=== PATIENT | female | born 1935 | race African-American/Black ===

== ENCOUNTER 2017-07-28 10:54 | Emergency (ER) | payer MEDICARE, BC ==
[2017-07-28 11:06] VITALS: BP 146/69
--- NOTE | 2017-07-28 11:36 | ER Document Report ---
ED Fall - General Chief Complaint: Facial Injury Stated Complaint: FALL/MOUTH PAIN Time Seen by Provider: 07/28/17 11:27 Mode of Arrival: Ambulatory Information source: Patient, [facility] Records Notes: This 81-year-old female patient lost her balance while walking outside today and fell forward onto the grass. She struck her lower lip toward the left side and left face and ear region. She denies actually striking her head, and there was no loss of consciousness. There is no neck pain. At this time there is only swelling to her lower lip. She takes a baby aspirin daily and no other antiplatelet drugs or blood thinners. TRAVEL OUTSIDE OF THE [place] IN LAST 30 DAYS: No - Related data Allergies/Adverse Reactions: No Known Allergies Allergy (Verified 07/28/17 10:57) Past Medical History - General Information source: Patient - Social History Smoking Status: Never Smoker Cigarette use (# per day): No Chew tobacco use (# tins/day): No Smoking Education Provided: No Frequency of alcohol use: None Drug Abuse: None Occupation: Retired Lives with: Spouse/Significant other Family History: Reviewed & Not Pertinent Patient has suicidal ideation: No Patient has homicidal ideation: No - Past Medical History Cardiac Medical History: Reports: Hx Hypercholesterolemia, Hx Hypertension Pulmonary Medical History: Reports: None EENT Medical History: Reports: None Neurological Medical History: Reports: None Endocrine Medical History: Reports: None Renal/ Medical History: Reports: Hx Kidney Stones GI Medical History: Reports: Hx Gastroesophageal Reflux Disease Musculoskeltal Medical History: Reports Hx Arthritis - osteo arthritis Psychiatric Medical History: Reports: None Past Surgical History: Reports: Hx Cholecystectomy, Hx Hysterectomy - Immunizations Hx Diphtheria, Pertussis, Tetanus Vaccination: Yes Hx Pneumococcal Vaccination: 07/07/14 Review of Systems - Review of Systems Constitutional: No symptoms reported EENT: No symptoms reported Cardiovascular: No symptoms reported Respiratory: No symptoms reported Gastrointestinal: No symptoms reported Female Genitourinary: Post menopausal Musculoskeletal: Joint pain Skin: No symptoms reported Hematologic/Lymphatic: No symptoms reported Neurological/Psychological: No symptoms reported Physical Exam - Vital signs Vitals: Temp Pulse Resp BP Pulse Ox 98.1 F 76 20 146/69 H 98 07/28/17 11:05 07/28/17 11:05 07/28/17 11:05 07/28/17 11:05 01/16/18 11:05 Interpretation: Normal - General General appearance: Appears well, Alert In distress: None - HEENT Head: Normocephalic, Atraumatic Eyes: Normal Pupils: PERRL Ears: Normal - Left external ear does not show any scrapes, lacerations, bruises , abrasions. There is no tenderness. Mouth/Lips: Other - The lower lip is grossly swollen, with some indentions on the inside corresponding to the patient's partial plate. Partial plate in the mouth are not affected. There are no actual complete lacerations or bleeding areas seen. Pharynx: Normal Neck: Normal, Supple - Posterior cervical muscles and spinous processes are not tender to palpate and patient has good range of motion. - Respiratory Respiratory status: No respiratory distress Breath sounds: Normal - Cardiovascular Rhythm: Regular Heart sounds: Normal auscultation Murmur: No - Abdominal Inspection: Normal Bowel sounds: Normal Tenderness: Nontender - Back Back: Normal - Extremities General upper extremity: Normal inspection - Patient does indicate an area on her right third and fourth MCP joints but is a little tender. There are no abrasions, no swelling or ecchymosis noted. There is good full range of motion at these joints. General lower extremity: Normal inspection - Neurological Neuro grossly intact: Yes - Psychological Associated symptoms: Normal affect, Normal mood - Skin Skin Temperature: Warm Skin Moisture: Dry Skin Color: Normal Course - Re-evaluation Re-evalutation: 07/28/17 13:35 The patient does feel that the swelling in her lip has gone down over time with the ice packs that she has been using. - Vital Signs Vital signs: Temp Pulse Resp BP Pulse Ox 98.1 F 76 20 146/69 H 98 07/28/17 11:05 07/28/17 11:05 07/28/17 11:05 07/28/17 11:05 07/28/17 11:05 Discharge - Discharge Clinical Impression: Fall Qualifiers: Encounter type: initial encounter Qualified Code(s): W19.XXXA - Unspecified fall, initial encounter Contusion of lip Qualifiers: Encounter type: initial encounter Qualified Code(s): S00.531A - Contusion of lip, initial encounter Condition: Stable Disposition: HOME, SELF-CARE Additional Instructions: Lip Contusion: Your injury has resulted in a contusion of your lower lip-- a crushing of the deep tissues. No injury to important structures was detected during the physician's exam. Contusions vary in the amount of pain they cause, and in the length of time required for healing. Typically, the area will become bruised, and will remain painful to touch for a week or two. After the initial period of rest and cold-packs, your symptoms (together with the doctor's recommendations) will determine how rapidly you can get back to full activity. Usually this means "do what feels okay, but don't do things that hurt." If re-examination was recommended, it's important to follow up as instructed. Call the doctor or return any time if pain increases, if swelling becomes severe, if you develop numbness or weakness in an injured extremity, or if any other alarming symptoms occur. //////////////////////////////////////////////////////////////////////////////// //////////////////////////////////////////////////////////////////////////////// ///////////////// Use ice packs to the swollen lip for the next 12-24 hours. Rest. You may notice other areas become sore later. Follow-up with your primary care provider if not improving. RETURN TO THE EMERGENCY ROOM IF ANY NEW OR WORSENING SYMPTOMS.
== END 2017-07-28 11:40 | disposition home or self-care (01) ==
LOC: ER 10:54
DX: S00.531A Contusion of lip, initial encounter (principal); R22.0 Localized swelling, mass and lump, head; W19.XXXA Unspecified fall, initial encounter
CPT/HCPCS: 99283

== ENCOUNTER 2017-10-25 16:44 | Emergency (ER) | payer MEDICARE, BC ==
--- NOTE | 2017-10-25 17:12 | ER Document Report ---
ED Medical Screen (RME) - General Chief Complaint: Chest Pain Stated Complaint: CHEST PAIN Time Seen by Provider: 10/25/17 17:01 Notes: This 81-year-old female patient reports onset about 1230 today while at advent of substernal chest pain which she describes as sharp in nature. She states it is different from indigestion pain she has had in the past. She does not have a history of coronary artery disease, does have hypertension and hyperlipidemia. I have greeted and performed a rapid initial assessment of this patient. A comprehensive ED assessment and evaluation of the patient, analysis of test results and completion of the medical decision making process will be conducted by additional ED providers. TRAVEL OUTSIDE OF THE [place] IN LAST 30 DAYS: No - Related Data Allergies/Adverse Reactions: No Known Allergies Allergy (Verified 10/25/17 17:01) Past Medical History - Social History Chew tobacco use (# tins/day): No Frequency of alcohol use: None Drug Abuse: None - Past Medical History Cardiac Medical History: Reports: Hx Hypercholesterolemia, Hx Hypertension Denies: Hx Coronary Artery Disease, Hx Heart Attack Pulmonary Medical History: Denies: Hx Asthma, Hx Bronchitis, Hx COPD, Hx Pneumonia Neurological Medical History: Denies: Hx Cerebrovascular Accident, Hx Seizures Renal/ Medical History: Reports: Hx Kidney Stones. Denies: Hx Peritoneal Dialysis GI Medical History: Reports: Hx Gastroesophageal Reflux Disease. 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 Denies: Hx Mastectomy, Hx Open Heart Surgery, Hx Pacemaker - Immunizations Hx Diphtheria, Pertussis, Tetanus Vaccination: Yes Physical Exam - Vital signs Vitals: Temp Pulse Resp BP Pulse Ox 98.0 F 64 16 163/73 H 98 10/25/17 16:56 10/25/17 16:56 10/25/17 16:56 10/25/17 16:56 10/25/17 16:56 Course - Vital Signs Vital signs: Temp Pulse Resp BP Pulse Ox 98.0 F 64 16 163/73 H 98 10/25/17 16:56 10/25/17 16:56 10/25/17 16:56 10/25/17 16:56 10/25/17 16:56
--- NOTE | 2017-10-25 17:54 | RADIOLOGY REPORT (SQ) ---
EXAM DESCRIPTION: CHEST 2 VIEWS COMPLETED DATE/TIME: 10/25/2017 5:44 pm REASON FOR STUDY: chest pain COMPARISON: 12/15/1999 EXAM PARAMETERS: NUMBER OF VIEWS: two views TECHNIQUE: Digital Frontal and Lateral radiographic views of the chest acquired. RADIATION DOSE: NA LIMITATIONS: none FINDINGS: LUNGS AND PLEURA: No opacities, masses or pneumothorax. No pleural effusion. MEDIASTINUM AND HILAR STRUCTURES: No masses or contour abnormalities. HEART AND VASCULAR STRUCTURES: Heart normal size. No evidence for failure. BONES: No acute findings. HARDWARE: None in the chest. OTHER: No other significant finding. IMPRESSION: NO ACUTE RADIOGRAPHIC FINDING IN THE CHEST. TECHNICAL DOCUMENTATION: JOB ID: [id number] [employer]- All Rights Reserved Reading location - IP/workstation name: [email or web address]
[2017-10-25 18:05] LABS: ABSOLUTE BASOPHILS # (AUTO) 0.1 10^3/uL (0.0-0.2); ABSOLUTE EOSINOPHILS # (AUTO) 0.2 10^3/uL (0.0-0.6); ABSOLUTE LYMPHOCYTES (AUTO) 2.4 10^3/uL (0.5-4.7); ABSOLUTE MONOCYTES (AUTO) 0.5 10^3/uL (0.1-1.4); ABSOLUTE NEUT (AUTO) 1.8 10^3/uL (1.7-8.2); BASOPHILS % (AUTO) 1.2 % (0-2); EOSINOPHILS % (AUTO) 3.2 % (0-6); HEMATOCRIT 37.2 % (36.0-47.0); HEMOGLOBIN 12.5 g/dL (12.0-15.5); MEAN CORPUSCULAR HEMOGLOBIN 28.9 pg (27.0-33.4); MEAN CORPUSCULAR HGB CONC 33.6 g/dL (32.0-36.0); MEAN CORPUSCULAR VOLUME 86 fl (80-97); MONOCYTES % (AUTO) 9.8 % (3-13); PLATELET COUNT 208 10^3/uL (150-450); RED BLOOD COUNT 4.32 10^6/uL (3.72-5.28); RED CELL DISTRIBUTION WIDTH 14.6 % (11.5-14.0); SEGMENTED NEUTROPHILS % (AUTO) 36.8 % (42-78); TOTAL CELLS COUNTED % (AUTO) 100 %; WHITE BLOOD COUNT 4.9 10^3/uL (4.0-10.5)
[2017-10-25 18:12] LABS: ALANINE AMINOTRANSFERASE 21 U/L (9-52); ALBUMIN 4.5 g/dL (3.5-5.0); ALKALINE PHOSPHATASE 44 U/L (38-126); ANION GAP 12 (5-19); ASPARTATE AMINO TRANSFERASE 29 U/L (14-36); BILIRUBIN,DIRECT 0.2 mg/dL (0.0-0.4); BILIRUBIN,TOTAL 0.4 mg/dL (0.2-1.3); BLOOD UREA NITROGEN 22 mg/dL (7-20); CALCIUM 9.9 mg/dL (8.4-10.2); CARBON DIOXIDE 29 mmol/L (22-30); CHLORIDE 103 mmol/L (98-107); CREATINE KINASE 149 U/L (30-135); GLUCOSE 89 mg/dL (75-110); POTASSIUM 3.9 mmol/L (3.6-5.0); SODIUM 143.6 mmol/L (137-145); TOTAL PROTEIN 7.8 g/dL (6.3-8.2)
--- NOTE | 2017-10-25 20:08 | EKG REPORT ---
SEVERITY:- ABNORMAL ECG - SINUS RHYTHM PROBABLE LEFT ATRIAL ABNORMALITY NONSPECIFIC T ABNORMALITIES, ANT-LAT LEADS : Confirmed by: Malcolm Rodas MD 25-Oct-2017 20:08:21
[2017-10-25 20:20] LABS: APPEARANCE,URINE CLEAR; BILIRUBIN,URINE NEGATIVE (NEGATIVE); COLOR,URINE STRAW; GLUCOSE, URINE NEGATIVE (NEGATIVE); KETONES,URINE NEGATIVE (NEGATIVE); LEUKOCYTE ESTERASE,URINE NEGATIVE (NEGATIVE); NITRITE,URINE NEGATIVE (NEGATIVE); PROTEIN,URINE NEGATIVE (NEGATIVE); URINE SPECIFIC GRAVITY 1.004; UROBILINOGEN,URINE NEGATIVE mg/dL (<2.0)
[2017-10-25] MEDS ORDERED: LIDOCAINE 2% VISCOUS SOLN 20 ML UDCUP PO ONE (20:32)
[2017-10-25] MEDS ORDERED: METOCLOPRAMIDE HCL ORAL SOLN 10 MG/10 ML UDCUP PO ONE (20:32)
[2017-10-25] MEDS ORDERED: FAMOTIDINE 20 MG TABLET PO ONE (20:32)
[2017-10-25] MEDS ORDERED: MAG HYDROX/AL HYDROX/SIMETH SUSP 30 ML UDCUP PO ONE (20:32)
--- NOTE | 2017-10-25 20:32 | ER Document Report ---
ED General - General Chief Complaint: Chest Pain Stated Complaint: CHEST PAIN Time Seen by Provider: 10/25/17 17:01 Notes: Patient is an 81 year old female with a past medical history of hypertension hyperlipidemia, no known coronary artery disease, normal stress test less than 1 year ago who presents with chest pain. Patient states that at approximately 1230 today she developed an acute onset of a stabbing pain to the center of her low sternum. She states that the pain has been ongoing since that time. She denies any associated shortness of breath, nausea, vomiting or diaphoresis. Nothing improves or worsens her pain. She states that she has had similar symptoms many times in the past secondary to reflux but that this felt more intense and somewhat dissimilar to her prior episodes prompting her to come to the emergency department. She has not seen her primary care doctor regarding today's concerns. She states that overall her pain has improved since arriving here in the emergency department and is now almost completely resolved. TRAVEL OUTSIDE OF THE [place] IN LAST 30 DAYS: No - Related Data Allergies/Adverse Reactions: No Known Allergies Allergy (Verified 10/25/17 17:01) Past Medical History - General Information source: Patient - Social History Smoking Status: Never Smoker Chew tobacco use (# tins/day): No Frequency of alcohol use: None Drug Abuse: None Lives with: Family Family History: Reviewed & Not Pertinent Patient has suicidal ideation: No Patient has homicidal ideation: No - Past Medical History Cardiac Medical History: Reports: Hx Hypercholesterolemia, Hx Hypertension Denies: Hx Coronary Artery Disease, Hx Heart Attack Pulmonary Medical History: Denies: Hx Asthma, Hx Bronchitis, Hx COPD, Hx Pneumonia Neurological Medical History: Denies: Hx Cerebrovascular Accident, Hx Seizures Renal/ Medical History: Reports: Hx Kidney Stones. Denies: Hx Peritoneal Dialysis GI Medical History: Reports: Hx Gastroesophageal Reflux Disease. 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 Denies: Hx Mastectomy, Hx Open Heart Surgery, Hx Pacemaker - Immunizations Hx Diphtheria, Pertussis, Tetanus Vaccination: Yes Hx Pneumococcal Vaccination: 07/07/14 Review of Systems - Review of Systems Notes: Constitutional: Negative for fever. HENT: Negative for sore throat. Eyes: Negative for visual changes. Cardiovascular: Positive for chest pain. Respiratory: Negative for shortness of breath. Gastrointestinal: Negative for abdominal pain, vomiting or diarrhea. Genitourinary: Negative for dysuria. Musculoskeletal: Negative for back pain. Skin: Negative for rash. Neurological: Negative for headaches, weakness or numbness. 10 point ROS negative except as marked above and in HPI. Physical Exam - Vital signs Vitals: Temp Pulse Resp BP Pulse Ox 98.0 F 64 16 163/73 H 98 10/25/17 16:56 10/25/17 16:56 10/25/17 16:56 10/25/17 16:56 10/25/17 16:56 Interpretation: Hypertensive Notes: PHYSICAL EXAMINATION: GENERAL: Well-appearing, well-nourished and in no acute distress. HEAD: Atraumatic, normocephalic. EYES: Pupils equal round and reactive to light, extraocular movements intact, sclera anicteric, conjunctiva are normal. ENT: nares patent, oropharynx clear without exudates. Moist mucous membranes. NECK: Normal range of motion, supple without lymphadenopathy LUNGS: Breath sounds clear to auscultation bilaterally and equal. No wheezes rales or rhonchi. HEART: Regular rate and rhythm without murmurs ABDOMEN: Soft, nontender, normoactive bowel sounds. No guarding, no rebound. No masses appreciated. EXTREMITIES: Normal range of motion, no pitting or edema. No cyanosis. NEUROLOGICAL: No focal neurological deficits. Moves all extremities spontaneously and on command. PSYCH: Normal mood, normal affect. SKIN: Warm, Dry, normal turgor, no rashes or lesions noted. Course - Re-evaluation Re-evalutation: 10/25/17 20:26 Presentation of chest pain in an otherwise well appearing patient. Low clinical suspicion for ACS given clinical history, exam, EKG without ST elevations or depressions, and negative initial troponin. HEART score less than or equal to 3. PE also seems unlikely given clinical history, absence of tachycardia or dyspnea. Patient is PERC criteria negative. CXR without evidence of pneumothorax or pneumonia. No widened mediastinum. Aortic dissection also seems unlikely given history, symmetric pulses, CXR, and vitals. Will repeat a delta troponin this remains normal plan for discharge home. HEART Score: History:0 EC Age:2 Risk Factors:1 Troponin:0 Total: 3 Chest pain in a patient without evidence of cardiac or other serious etiology on workup today. I discussed with patient that, based on their age, risk factors and emergency department testing today, the likelihood that their symptoms are related to a heart attack is very low (estimated risk of heart attack or over the next 30 days of less than 1%). The patient demonstrates decision making capacity and has verbalized an understanding of these risks to me. Based on this, the patient has chosen to follow-up as an outpatient. Usual chest pain return precautions reviewed. The patient states understanding and agreement with this plan. - Vital Signs Vital signs: Temp Pulse Resp BP Pulse Ox 98.0 F 64 17 137/67 H 100 10/25/17 16:56 10/25/17 16:56 10/25/17 22:01 10/25/17 22:01 10/25/17 22:01 - Laboratory Result Diagrams: 10/25/17 17:31 10/25/17 17:31 Laboratory results interpreted by me: 10/25/17 10/25/17 10/25/17 17:31 17:31 19:49 RDW 14.6 H Seg Neutrophils % 36.8 L Lymphocytes % 49.0 H BUN 22 H Est GFR (Non-Af Amer) 52 L Creatine Kinase 149 H Urine Blood SMALL H - Diagnostic Test Radiology reviewed: Image reviewed, Reports reviewed Radiology results interpreted by me: 10/25/17 20:27 Chest x-ray: No acute infiltrate or pneumothorax - EKG Interpretation by Me Additional EKG results interpreted by me: 10/25/17 20:27 Sinus bradycardia. Rate 58. No ST elevations or depressions. QTC is 429. Discharge - Discharge Clinical Impression: Essential hypertension Chest pain Qualifiers: Chest pain type: unspecified Qualified Code(s): R07.9 - Chest pain, unspecified Condition: Good Disposition: HOME, SELF-CARE Additional Instructions: You were seen today for chest pain. The exact cause of your pain is unclear. However, based on your cardiac enzyme testing, chest x-ray, and EKG it does not appear that it is from an immediately life-threatening cause at this time. Although your testing here is normal is critical that you follow-up with your primary care physician for continued evaluation of this chest pain and possible stress testing. I recommended you see your physician within the next 24-48 hours to be evaluated for consideration of a stress test. Please return to emergency department immediately if you have worsening of your chest pain, shortness of breath, vomiting, become unable to exert yourself due to pain or difficulty breathing, you pass out, or have any pain that radiates into your arms, jaw, or back. Please also return if you have any additional symptoms that are concerning to you. Referrals: IGNACIA DELCID MD [Primary Care Provider] - Follow up in 3-5 days
[2017-10-25 22:05] VITALS: BP 137/67
== END 2017-10-25 22:08 | disposition home or self-care (01) ==
LOC: ER 16:44
DX: R07.9 Chest pain, unspecified (principal); I10 Essential (primary) hypertension; E78.5 Hyperlipidemia, unspecified; I25.10 Atherosclerotic heart disease of native coronary artery without angina pectoris
CPT/HCPCS: 93005; 99285; 36415; 82550; 85025; 80053; 81001; 84484; 71046; 93010; A9270 ×2; J3490

== ENCOUNTER 2018-04-13 15:13 | Emergency (ER) | payer MEDICARE, BC ==
--- NOTE | 2018-04-13 16:13 | ER Document Report ---
ED Medical Screen (RME) - General Chief Complaint: Neck Pain >24hrs old Stated Complaint: NECK PAIN Time Seen by Provider: 04/13/18 16:11 Mode of Arrival: Ambulatory Information source: Patient, Relative, [facility] Records Notes: 82-year-old female presents with complaint of neck pain, pain with opening her mouth. Patient states that since falling last winter she has experienced neck pain that has worsened over the last month. Patient was seen by her primary care physician yesterday and started on Keflex for "inflammation". I have greeted and performed a rapid initial assessment of this patient. A comprehensive ED assessment and evaluation of the patient, analysis of test results and completion of medical decision making process we will be contacted by additional ED providers. PHYSICAL EXAMINATION: Vital signs reviewed GENERAL: Well-appearing, well-nourished and in no acute distress. LUNGS: No respiratory distress Musculoskeletal: Normal range of motion NEUROLOGICAL: Normal speech, normal gait. PSYCH: Normal mood, normal affect. SKIN: Warm, Dry, normal turgor, no rashes or lesions noted. TRAVEL OUTSIDE OF THE [place] IN LAST 30 DAYS: No - HPI Onset: Other Onset/Duration: Persistent, Worse Quality of pain: Throbbing Severity: Moderate Associated Symptoms: Sore throat. denies: Fever Exacerbated by: Movement Relieved by: Denies Similar symptoms previously: Yes Recently seen / treated by doctor: Yes - Related Data Smoking: Non-smoker Frequency of alcohol use: None Drug Abuse: None Allergies/Adverse Reactions: No Known Allergies Allergy (Verified 04/13/18 16:08) Past Medical History - Social History Chew tobacco use (# tins/day): No Frequency of alcohol use: None Drug Abuse: None - Past Medical History Cardiac Medical History: Reports: Hx Hypercholesterolemia, Hx Hypertension Denies: Hx Coronary Artery Disease, Hx Heart Attack Pulmonary Medical History: Denies: Hx Asthma, Hx Bronchitis, Hx COPD, Hx Pneumonia Neurological Medical History: Denies: Hx Cerebrovascular Accident, Hx Seizures Renal/ Medical History: Reports: Hx Kidney Stones. Denies: Hx Peritoneal Dialysis GI Medical History: Reports: Hx Gastroesophageal Reflux Disease. 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 Denies: Hx Mastectomy, Hx Open Heart Surgery, Hx Pacemaker - Immunizations Hx Diphtheria, Pertussis, Tetanus Vaccination: Yes Physical Exam - Vital signs Vitals: Temp Pulse Resp BP Pulse Ox 99.2 F 83 16 159/64 H 98 04/13/18 15:22 04/13/18 15:22 04/13/18 15:22 04/13/18 15:22 04/13/18 15:22 Course - Vital Signs Vital signs: Temp Pulse Resp BP Pulse Ox 99.2 F 83 16 159/64 H 98 04/13/18 15:22 04/13/18 15:22 04/13/18 15:22 04/13/18 15:22 04/13/18 15:22 Doctor's Discharge - Discharge Referrals: IGNACIA DELCID MD [Primary Care Provider] - Follow up as needed
[2018-04-13 16:48] LABS: ABSOLUTE BASOPHILS # (AUTO) 0.1 10^3/uL (0.0-0.2); ABSOLUTE LYMPHOCYTES (AUTO) 1.7 10^3/uL (0.5-4.7); ABSOLUTE MONOCYTES (AUTO) 0.7 10^3/uL (0.1-1.4); BASOPHILS % (AUTO) 1.3 % (0-2); EOSINOPHILS % (AUTO) 0.2 % (0-6); HEMATOCRIT 38.8 % (36.0-47.0); HEMOGLOBIN 13.2 g/dL (12.0-15.5); LYMPHOCYTES % (AUTO) 25.7 % (13-45); MEAN CORPUSCULAR HEMOGLOBIN 29.2 pg (27.0-33.4); MEAN CORPUSCULAR HGB CONC 34.1 g/dL (32.0-36.0); MEAN CORPUSCULAR VOLUME 86 fl (80-97); MONOCYTES % (AUTO) 11.1 % (3-13); PLATELET COUNT 225 10^3/uL (150-450); RED BLOOD COUNT 4.53 10^6/uL (3.72-5.28); RED CELL DISTRIBUTION WIDTH 13.2 % (11.5-14.0); SEGMENTED NEUTROPHILS % (AUTO) 61.7 % (42-78); TOTAL CELLS COUNTED % (AUTO) 100 %; WHITE BLOOD COUNT 6.5 10^3/uL (4.0-10.5)
--- NOTE | 2018-04-13 17:04 | RADIOLOGY REPORT (SQ) ---
EXAM DESCRIPTION: CT CERVICAL SPINE WITHOUT COMPLETED DATE/TIME: 04/13/2018 4:47 pm REASON FOR STUDY: neck pain /swelling COMPARISON: None. TECHNIQUE: Axial images acquired through the cervical spine without intravenous contrast. Images re viewed with lung, soft tissue and bone windows. Reconstructed coronal and sagittal MPR images review ed. Images stored on PACS. All CT scanners at this facility use dose modulation, iterative reconstruction, and/or weight based d osing when appropriate to reduce radiation dose to as low as reasonably achievable (ALARA). [facility]: Dose Right [facility]: CareDose [facility]: Dose Right [facility]: Teradose 4D [facility]: Smart DXY RADIATION DOSE: CT Rad equipment meets quality standard of care and radiation dose reduction techniq ues were employed. CTDIvol: 10.2 mGy. DLP: 227 mGy-cm. mGy. LIMITATIONS: None. FINDINGS: ALIGNMENT: Anatomic. MINERALIZATION: Normal. VERTEBRAL BODIES: No fractures or dislocation. DISCS: Craniocervical junction, C1-2, are unremarkable. High-grade left foraminal narrowing at C2-3 from facet and uncovertebral hypertrophy. No significant central or right foraminal narrowing. At C3-4, broad diffuse posterior disc bulging causes mild central canal narrowing. Mild right, high- grade left foraminal narrowing from facet and uncovertebral hypertrophy. At C4-5, mild central canal stenosis results from broad diffuse posterior disc bulging. High-grade b ilateral foraminal narrowing from facet and uncovertebral hypertrophy. At C5-6, no central stenosis is present. High-grade bilateral foraminal narrowing from facet and unc overtebral hypertrophy. At C6-7, mild central canal stenosis results from broad diffuse posterior disc bulge and bony spurrin g. There is high-grade bilateral foraminal narrowing from facet and uncovertebral hypertrophy. No central stenosis at C7-T1. High-grade bilateral foraminal narrowing is present from facet and unc overtebral hypertrophy. FACETS, LATERAL MASSES, POSTERIOR ELEMENTS: No acute fracture HARDWARE: None in the spine. VISUALIZED RIBS: No fractures. LUNG APICES AND SOFT TISSUES: No significant or acute findings. OTHER: No other significant finding. IMPRESSION: CHRONIC DEGENERATIVE CHANGES. NO ACUTE FINDINGS. TECHNICAL DOCUMENTATION: JOB ID: [id number] Quality ID # [id number]: Final reports with documentation of one or more dose reduction techniques (e.g., Au tomated exposure control, adjustment of the mA and/or kV according to patient size, use of iterative reconstruction technique) 2010 [employer]- All Rights Reserved Reading location - IP/workstation name: [email or web address]
[2018-04-13 17:10] LABS: ANION GAP 11 (5-19); BLOOD UREA NITROGEN 21 mg/dL (7-20); CALCIUM 9.8 mg/dL (8.4-10.2); CARBON DIOXIDE 31 mmol/L (22-30); CHLORIDE 99 mmol/L (98-107); GLUCOSE 118 mg/dL (75-110); POTASSIUM 3.7 mmol/L (3.6-5.0); SODIUM 140.7 mmol/L (137-145)
[2018-04-13] MEDS ORDERED: TRAMADOL HCL 50 MG TABLET PO ONE (18:55)
[2018-04-13] MEDS ORDERED: LIDOCAINE 5% (700 MG) TRANSDERMAL ADH..PATCH TP ONE (19:01)
--- NOTE | 2018-04-13 19:01 | ER Document Report ---
ED General - General Chief Complaint: Neck Pain >24hrs old Stated Complaint: NECK PAIN Time Seen by Provider: 04/13/18 16:11 Mode of Arrival: Ambulatory TRAVEL OUTSIDE OF THE [place] IN LAST 30 DAYS: No - HPI Patient complains to provider of: Neck pain Notes: Patient coming in for evaluation of neck pain ongoing for approximately 1 week saw her PCP yesterday started on Keflex for lymphadenopathy found in the neck patient states continues to have pain therefore came to the ER for further evaluation denies any fevers chills nausea vomiting denies any difficulty controlling her secretions denies any shortness of breath. Patient resting healthy upon my evaluation. - Related Data Allergies/Adverse Reactions: No Known Allergies Allergy (Verified 04/13/18 16:08) Past Medical History - General Information source: Patient, Relative, [facility] Records - Social History Smoking Status: Never Smoker Chew tobacco use (# tins/day): No Frequency of alcohol use: None Drug Abuse: None Family History: Reviewed & Not Pertinent Patient has suicidal ideation: No Patient has homicidal ideation: No - Past Medical History Cardiac Medical History: Reports: Hx Hypercholesterolemia, Hx Hypertension Denies: Hx Coronary Artery Disease, Hx Heart Attack Pulmonary Medical History: Denies: Hx Asthma, Hx Bronchitis, Hx COPD, Hx Pneumonia Neurological Medical History: Denies: Hx Cerebrovascular Accident, Hx Seizures Renal/ Medical History: Reports: Hx Kidney Stones. Denies: Hx Peritoneal Dialysis GI Medical History: Reports: Hx Gastroesophageal Reflux Disease. 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 Denies: Hx Mastectomy, Hx Open Heart Surgery, Hx Pacemaker - Immunizations Hx Diphtheria, Pertussis, Tetanus Vaccination: Yes Hx Pneumococcal Vaccination: 07/07/14 Review of Systems - Review of Systems Constitutional: No symptoms reported EENT: Other - Neck pain Cardiovascular: No symptoms reported Respiratory: No symptoms reported Gastrointestinal: No symptoms reported Genitourinary: No symptoms reported Female Genitourinary: No symptoms reported Musculoskeletal: No symptoms reported Skin: No symptoms reported Hematologic/Lymphatic: No symptoms reported Neurological/Psychological: No symptoms reported -: Yes All other systems reviewed and negative Physical Exam - Vital signs Vitals: Temp Pulse Resp BP Pulse Ox 99.2 F 83 16 159/64 H 98 04/13/18 15:22 04/13/18 15:22 04/13/18 15:22 04/13/18 15:22 04/13/18 15:22 Interpretation: Normal - General General appearance: Appears well, Alert - HEENT Head: Normocephalic, Atraumatic Eyes: Normal Conjunctiva: Normal Cornea: Normal Pupils: PERRL Ears: Normal External canal: Normal Tympanic membrane: Normal Sinus: Normal Nasal: Normal Mouth/Lips: Normal Pharynx: Normal Notes: Left-sided cervical lymphadenopathy with 3 palpable lymph nodes felt painful no fluctuance no tenderness to palpation of the submandibular gland - Respiratory Respiratory status: No respiratory distress Chest status: Nontender Breath sounds: Normal Chest palpation: Normal - Cardiovascular Rhythm: Regular Heart sounds: Normal auscultation Murmur: No - Abdominal Inspection: Normal Distension: No distension Bowel sounds: Normal Tenderness: Nontender Organomegaly: No organomegaly - Back Back: Normal, Nontender - Extremities General upper extremity: Normal inspection, Nontender, Normal color, Normal ROM , Normal temperature General lower extremity: Normal inspection, Nontender, Normal color, Normal ROM , Normal temperature, Normal weight bearing. No: Dana's sign - Neurological Neuro grossly intact: Yes Cognition: Normal Orientation: AAOx4 Platter Coma Scale Eye Opening: Spontaneous Platter Coma Scale Verbal: Oriented Darrius Coma Scale Motor: Obeys Commands Darrius Coma Scale Total: 15 Speech: Normal Motor strength normal: LUE, RUE, LLE, RLE Sensory: Normal - Psychological Associated symptoms: Normal affect, Normal mood - Skin Skin Temperature: Warm Skin Moisture: Dry Skin Color: Normal Course - Re-evaluation Re-evalutation: 04/13/18 22:58 No clear etiology for the patient's cervical lymphadenopathy at this time. Patient was encouraged follow-up with PCP continue her antibiotics Ultram was given for pain control patient is understanding patient was discharged home. - Vital Signs Vital signs: Temp Pulse Resp BP Pulse Ox 97.9 F 75 16 155/69 H 98 04/13/18 19:10 04/13/18 19:10 04/13/18 15:22 04/13/18 19:10 04/13/18 19:10 - Laboratory Result Diagrams: 04/13/18 16:37 04/13/18 16:37 Laboratory results interpreted by me: 04/13/18 16:37 Carbon Dioxide 31 H BUN 21 H Est GFR ( Amer) 51 L Est GFR (Non-Af Amer) 42 L Glucose 118 H Discharge - Discharge Clinical Impression: Neck pain, Cervical lymphadenopathy Condition: Good Disposition: HOME, SELF-CARE Instructions: Lymphadenopathy ([facility]) Additional Instructions: Your evaluation today shows signs of swollen lymph nodes in her neck that your primary care physician is her I placed you on antibiotics for. Otherwise your evaluation here in ER does not show any signs of acute infection that would require admission to the hospital CT scan of your neck is otherwise negative. I recommend using Tylenol for pain control along with the tramadol as prescribed. Take tramadol for severe pain. Return to ER symptoms worsen follow -up with your primary care physician. Prescriptions: Tramadol HCl [Ultram 50 mg Tablet] 50 mg PO ASDIR PRN #14 tablet PRN Reason: Referrals: IGNACIA DELCID MD [Primary Care Provider] - Follow up as needed
[2018-04-13 19:12] VITALS: BP 155/69
== END 2018-04-13 19:13 | disposition home or self-care (01) ==
LOC: ER 15:13
DX: M54.2 Cervicalgia (principal); R59.0 Localized enlarged lymph nodes; E78.00 Pure hypercholesterolemia, unspecified; I10 Essential (primary) hypertension; Z87.442 Personal history of urinary calculi; Z90.49 Acquired absence of other specified parts of digestive tract; Z90.710 Acquired absence of both cervix and uterus
CPT/HCPCS: 99284; 36415; 85025; 80048; 72125; A9270

== ENCOUNTER 2018-07-23 14:01 | Emergency (ER) | payer MEDICARE, BC ==
--- NOTE | 2018-07-23 15:41 | ER Document Report ---
ED Medical Screen (RME) - General Chief Complaint: Dizziness Stated Complaint: DIZZY Time Seen by Provider: 07/23/18 15:35 TRAVEL OUTSIDE OF THE [place] IN LAST 30 DAYS: No - HPI Notes: 07/23/18 15:41 Patient is a 82-year-old female that presents to the emergency department for chief complaint of dizziness. Patient states she felt normal yesterday when she woke up however shortly after that she started to feel dizzy. She states a constant sensation of motion and dizziness since then. It is worse when she looks down and then looks up again. She denies history of vertigo. She denies headache, vision changes, numbness and weakness. She denies any change in her symptoms since onset yesterday.. ROS: GENERAL: Denies fever of chills CV: Denies chest pain PHYSICAL EXAMINATION: GENERAL: Well-appearing, well-nourished and in no acute distress. HEAD: Atraumatic, normocephalic. EYES: Pupils equal round extraocular movements intact, conjunctiva are normal. ENT: Nares patent NECK: Normal range of motion LUNGS: No respiratory distress Musculoskeletal: Normal range of motion NEUROLOGICAL: Normal speech, normal gait. PSYCH: Normal mood, normal affect. MDM: Patient seen and examined for rapid initial assessment. Vital signs reviewed. A comprehensive ED assessment and evaluation of the patient, analysis of test results and completion of the medical decision making process will be conducted by additional ED providers. - Related Data Allergies/Adverse Reactions: No Known Allergies Allergy (Verified 04/13/18 16:08) Past Medical History - Social History Chew tobacco use (# tins/day): No Drug Abuse: None - Past Medical History Cardiac Medical History: Reports: Hx Hypercholesterolemia, Hx Hypertension Denies: Hx Coronary Artery Disease, Hx Heart Attack Pulmonary Medical History: Denies: Hx Asthma, Hx Bronchitis, Hx COPD, Hx Pneumonia Neurological Medical History: Denies: Hx Cerebrovascular Accident, Hx Seizures Renal/ Medical History: Reports: Hx Kidney Stones. Denies: Hx Peritoneal Dialysis GI Medical History: Reports: Hx Gastroesophageal Reflux Disease. 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 Denies: Hx Mastectomy, Hx Open Heart Surgery, Hx Pacemaker - Immunizations Hx Diphtheria, Pertussis, Tetanus Vaccination: Yes Physical Exam - Vital signs Vitals: Temp Pulse Resp BP Pulse Ox 98.2 F 65 14 152/65 H 100 07/23/18 14:09 07/23/18 14:09 07/23/18 14:09 07/23/18 14:09 07/23/18 14:09 Course - Vital Signs Vital signs: Temp Pulse Resp BP Pulse Ox 98.2 F 65 14 152/65 H 100 07/23/18 14:09 07/23/18 14:09 07/23/18 14:09 07/23/18 14:09 07/23/18 14:09 Doctor's Discharge - Discharge Referrals: IGNACIA DELCID MD [Primary Care Provider] - Follow up as needed
--- NOTE | 2018-07-23 16:15 | RADIOLOGY REPORT (SQ) ---
EXAM DESCRIPTION: CT HEAD WITHOUT COMPLETED DATE/TIME: 07/23/2018 4:05 pm REASON FOR STUDY: dizzy COMPARISON: None. TECHNIQUE: Axial images acquired through the brain without intravenous contrast. Images reviewed wi th bone, brain and subdural windows. Additional sagittal and coronal reconstructions were generated. Images stored on PACS. All CT scanners at this facility use dose modulation, iterative reconstruction, and/or weight based d osing when appropriate to reduce radiation dose to as low as reasonably achievable (ALARA). [facility]: Dose Right [facility]: CareDose [facility]: Dose Right [facility]: Teradose 4D [facility]: [place] RADIATION DOSE: CT Rad equipment meets quality standard of care and radiation dose reduction techniq ues were employed. CTDIvol: 53.2 mGy. DLP: 1017 mGy-cm.mGy. LIMITATIONS: None. FINDINGS: VENTRICLES: Prominent. CEREBRUM: No masses. No hemorrhage. No midline shift. Areas of low density in the white matter mos t likely due to chronic micro-vascular ischemic change. No evidence for acute infarction. CEREBELLUM: No masses. No hemorrhage. No alteration of density. No evidence for acute infarction. EXTRAAXIAL SPACES: Age-related involutional change. No fluid collections. No masses. ORBITS AND GLOBE: No intra- or extraconal masses. Normal contour of globe without masses. CALVARIUM: No fracture. PARANASAL SINUSES: No fluid or mucosal thickening. SOFT TISSUES: No mass or hematoma. OTHER: No other significant finding. IMPRESSION: CHRONIC CHANGES OF ATROPHY AND MICROVASCULAR ISCHEMIA. NO ACUTE PROCESS. EVIDENCE OF ACUTE STROKE: NO. TECHNICAL DOCUMENTATION: JOB ID: [id number] Quality ID # [id number]: Final reports with documentation of one or more dose reduction techniques (e.g., Au tomated exposure control, adjustment of the mA and/or kV according to patient size, use of iterative reconstruction technique) 2010 [employer]- All Rights Reserved Reading location - IP/workstation name: [email or web address]
--- NOTE | 2018-07-23 16:17 | RADIOLOGY REPORT (SQ) ---
EXAM DESCRIPTION: CHEST SINGLE VIEW COMPLETED DATE/TIME: 07/23/2018 4:05 pm REASON FOR STUDY: dizzy COMPARISON: 10/25/2017. EXAM PARAMETERS: NUMBER OF VIEWS: One view. TECHNIQUE: Single frontal radiographic view of the chest acquired. RADIATION DOSE: NA LIMITATIONS: None. FINDINGS: LUNGS AND PLEURA: No opacities, masses or pneumothorax. No pleural effusion. MEDIASTINUM AND HILAR STRUCTURES: No masses. Contour normal. HEART AND VASCULAR STRUCTURES: Heart upper limits of normal in size. Normal vasculature. BONES: No acute findings. HARDWARE: Clips in the upper abdomen. OTHER: No other significant finding. IMPRESSION: NO ACUTE RADIOGRAPHIC FINDING IN THE CHEST. TECHNICAL DOCUMENTATION: JOB ID: [id number] 1818 [employer]- All Rights Reserved Reading location - IP/workstation name: [email or web address]
[2018-07-23 17:18] LABS: ABSOLUTE BASOPHILS # (AUTO) 0.1 10^3/uL (0.0-0.2); ABSOLUTE EOSINOPHILS # (AUTO) 0.1 10^3/uL (0.0-0.6); ABSOLUTE LYMPHOCYTES (AUTO) 2.4 10^3/uL (0.5-4.7); ABSOLUTE MONOCYTES (AUTO) 0.5 10^3/uL (0.1-1.4); ABSOLUTE NEUT (AUTO) 2.4 10^3/uL (1.7-8.2); BASOPHILS % (AUTO) 1.3 % (0-2); EOSINOPHILS % (AUTO) 1.5 % (0-6); HEMOGLOBIN 12.5 g/dL (12.0-15.5); MEAN CORPUSCULAR HGB CONC 32.9 g/dL (32.0-36.0); MEAN CORPUSCULAR VOLUME 85 fl (80-97); MONOCYTES % (AUTO) 8.8 % (3-13); PLATELET COUNT 241 10^3/uL (150-450); RED BLOOD COUNT 4.46 10^6/uL (3.72-5.28); SEGMENTED NEUTROPHILS % (AUTO) 44.4 % (42-78); TOTAL CELLS COUNTED % (AUTO) 100 %; WHITE BLOOD COUNT 5.4 10^3/uL (4.0-10.5)
[2018-07-23 17:19] LABS: INTERNATIONAL RATION (INR) 1.07; PROTHROMBIN TIME 14.5 SEC (11.4-15.4)
[2018-07-23 17:20] LABS: PARTIAL THROMBOPLASTIN TIME 33.4 SEC (23.5-35.8)
[2018-07-23 17:23] LABS: APPEARANCE,URINE CLOUDY; BILIRUBIN,URINE NEGATIVE (NEGATIVE); GLUCOSE, URINE NEGATIVE (NEGATIVE); KETONES,URINE NEGATIVE (NEGATIVE); LEUKOCYTE ESTERASE,URINE SMALL (NEGATIVE); NITRITE,URINE NEGATIVE (NEGATIVE); PROTEIN,URINE >=500 mg/dL (NEGATIVE); URINE SPECIFIC GRAVITY 1.017
[2018-07-23 17:26] LABS: COLOR,URINE YELLOW
--- NOTE | 2018-07-23 17:42 | EKG REPORT ---
SEVERITY:- BORDERLINE ECG - SINUS RHYTHM PROBABLE LEFT ATRIAL ABNORMALITY BORDERLINE T ABNORMALITIES, ANT-LAT LEADS : Confirmed by: Malcolm Rodas MD 23-Jul-2018 17:41:44
[2018-07-23 17:49] LABS: ALANINE AMINOTRANSFERASE 6 U/L (9-52); ALBUMIN 4.9 g/dL (3.5-5.0); ALKALINE PHOSPHATASE 69 U/L (38-126); ANION GAP 11 (5-19); ASPARTATE AMINO TRANSFERASE 53 U/L (14-36); BILIRUBIN,DIRECT 0.5 mg/dL (0.0-0.4); BILIRUBIN,TOTAL 0.7 mg/dL (0.2-1.3); BLOOD UREA NITROGEN 22 mg/dL (7-20); CALCIUM 9.6 mg/dL (8.4-10.2); CARBON DIOXIDE 30 mmol/L (22-30); CHLORIDE 102 mmol/L (98-107); GLUCOSE 88 mg/dL (75-110); POTASSIUM 3.7 mmol/L (3.6-5.0); SODIUM 142.6 mmol/L (137-145)
[2018-07-23] MEDS ORDERED: AMOXICILLIN TRIHYDRATE 500 MG CAPSULE PO ONE (19:03)
[2018-07-23] MEDS ORDERED: DEXAMETHASONE 4 MG TABLET PO ONE (19:03)
[2018-07-23] MEDS ORDERED: CETIRIZINE 10 MG TABLET PO ONE (19:03)
--- NOTE | 2018-07-23 19:03 | ER Document Report ---
ED General - General Chief Complaint: Dizziness Stated Complaint: DIZZY Time Seen by Provider: 07/23/18 15:35 Notes: Patient is an 82-year-old female with a past medical history of hypertension, presents with complaints of 36 hours of positional vertigo. The patient states that when she goes from sitting to standing position or moves her head from a down to a position rapidly she becomes somewhat lightheaded with associated imbalance. She denies these symptoms while lying in bed and talking to. Nothing seems to improve the symptoms. Denies a history of similar symptoms in the past. She has not seen her primary care doctor regarding today's concerns. She denies any associated headache, neck pain, weakness, numbness, confusion or head trauma. No pain of any kind. She does note that she feels like her ears are full. She also notes that she has had segmental anterior cervical lymphadenopathy since April 2018 with associated nasal congestion and frequent morning cough. TRAVEL OUTSIDE OF THE [place] IN LAST 30 DAYS: No - Related Data Allergies/Adverse Reactions: No Known Allergies Allergy (Verified 04/13/18 16:08) Past Medical History - General Information source: Patient - Social History Smoking Status: Never Smoker Chew tobacco use (# tins/day): No Frequency of alcohol use: None Drug Abuse: None Lives with: Spouse/Significant other Family History: Reviewed & Not Pertinent Patient has suicidal ideation: No Patient has homicidal ideation: No - Past Medical History Cardiac Medical History: Reports: Hx Hypercholesterolemia, Hx Hypertension Denies: Hx Coronary Artery Disease, Hx Heart Attack Pulmonary Medical History: Denies: Hx Asthma, Hx Bronchitis, Hx COPD, Hx Pneumonia Neurological Medical History: Denies: Hx Cerebrovascular Accident, Hx Seizures Renal/ Medical History: Reports: Hx Kidney Stones. Denies: Hx Peritoneal Dialysis GI Medical History: Reports: Hx Gastroesophageal Reflux Disease. 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 Denies: Hx Mastectomy, Hx Open Heart Surgery, Hx Pacemaker - Immunizations Hx Diphtheria, Pertussis, Tetanus Vaccination: Yes Hx Pneumococcal Vaccination: 07/07/14 Review of Systems - Review of Systems Notes: Constitutional: Negative for fever. HENT: Negative for sore throat. Eyes: Negative for visual changes. Cardiovascular: Negative for chest pain. Respiratory: Negative for shortness of breath. Gastrointestinal: Negative for abdominal pain, vomiting or diarrhea. Genitourinary: Negative for dysuria. Musculoskeletal: Negative for back pain. Skin: Negative for rash. Neurological: Positive for vertigo 10 point ROS negative except as marked above and in HPI. Physical Exam - Vital signs Vitals: Temp Pulse Resp BP Pulse Ox 98.2 F 65 14 152/65 H 100 07/23/18 14:09 07/23/18 14:09 07/23/18 14:09 07/23/18 14:09 07/23/18 14:09 Interpretation: Hypertensive Notes: PHYSICAL EXAMINATION: GENERAL: Well-appearing, well-nourished and in no acute distress. HEAD: Atraumatic, normocephalic. EYES: Pupils equal round and reactive to light, extraocular movements intact, sclera anicteric, conjunctiva are normal. ENT: nares patent, oropharynx clear without exudates. Left TM clear, right TM with a purulent effusion. Moderately dry mucous membranes. NECK: Normal range of motion, bilateral segmental lymphadenopathy more prominent on the left versus the right LUNGS: Breath sounds clear to auscultation bilaterally and equal. No wheezes rales or rhonchi. HEART: Regular rate and rhythm without murmurs ABDOMEN: Soft, nontender, normoactive bowel sounds. No guarding, no rebound. No masses appreciated. EXTREMITIES: Normal range of motion, no pitting or edema. No cyanosis. NEUROLOGICAL: Face symmetric. Tongue protrudes midline. Extraocular motions intact. Pupils are 2 mm and equally reactive. Normal speech, normal gait. 5 out of 5 strength in both the distal and proximal upper and lower extremities bilaterally. Sensation is grossly intact throughout. Finger to nose testing normal. Pronator drift normal. PSYCH: Normal mood, normal affect. SKIN: Warm, Dry, normal turgor, no rashes or lesions noted. Course - Re-evaluation Re-evalutation: 07/23/18 18:58 Presentation of vertigo that appears most consistent with a peripheral vertigo. Patient has no abnormal findings on exam. Normal cerebellar testing, steady even gait. Able to walk on heels and toes. Normal proprioception. Patient does report bilateral ear fullness, appears to have an otitis media on the right. She also has supplemental lymphadenopathy bilaterally which apparently has been present for approximately 3-4 months and notes frequent sneezing, coughing and morning phlegm production. It is also possible that the effusion on the right is allergic in origin. The patient did undergo laboratory testing in triage as well as a CT of the head and a chest x-ray all of which are noted to be effectively unremarkable with exception of hematuria in the urine of which the patient knows and states that she is currently scheduled for a cystoscopy to further evaluate. No significant anemia. The patient denies any symptoms at the time of my assessment. She states that the symptoms are only present with positional changes and movement of her head. This is entirely inconsistent with a cerebellar infarction and I do not believe emergent MRI imaging is indicated at this time. Will start the patient on a course of cetirizine, amoxicillin, and provide a single dose of dexamethasone here in the emergency department. At this time will discharge with return precautions and follow-up recommendations. Verbal discharge instructions given a the bedside and opportunity for questions given. Medication warnings reviewed. Patient is in agreement with this plan and has verbalized understanding of return precautions and the need for primary care follow-up in the next 24-72 hours. - Vital Signs Vital signs: Temp Pulse Resp BP Pulse Ox 97.9 F 65 16 160/76 H 100 07/23/18 19:01 07/23/18 14:09 07/23/18 19:01 07/23/18 19:01 07/23/18 19:01 - Laboratory Result Diagrams: 07/23/18 16:55 07/23/18 16:55 Laboratory results interpreted by me: 07/23/18 07/23/18 07/23/18 16:55 16:55 16:55 RDW 15.0 H BUN 22 H Creatinine 1.29 H Est GFR ( Amer) 48 L Est GFR (Non-Af Amer) 39 L Direct Bilirubin 0.5 H AST 53 H ALT 6 L Total Protein 9.0 H Urine Protein >=500 H Urine Blood LARGE H Urine Urobilinogen 2.0 H Ur Leukocyte Esterase SMALL H - Diagnostic Test Radiology reviewed: Image reviewed, Reports reviewed Radiology results interpreted by me: 07/23/18 19:01 CT head: No acute intracranial bleed or mass Chest x-ray: No acute infiltrate - EKG Interpretation by Me Additional EKG results interpreted by me: 01/11/19 19:02 Sinus rhythm, rate 62. No ST elevations or depressions. QTC is 451. Discharge - Discharge Clinical Impression: Vertigo, Lymphadenopathy of head and neck region Hematuria Qualifiers: Hematuria type: unspecified type Qualified Code(s): R31.9 - Hematuria, uns pecified Right otitis media Qualifiers: Otitis media type: allergic Chronicity: acute Recurrence: not specified as recurrent Qualified Code(s): H65.111 - Acute and subacute allergic otitis media (mucoid) (sanguinous) (serous), right ear Condition: Good Disposition: HOME, SELF-CARE Additional Instructions: You were seen today for lightheadedness/dizziness. The exact cause of your symptoms is unclear but your workup here is reassuring without any concerning findings. Your symptoms may be related to an ear infection on the right side which could be either due to a bacterial infection or fluid buildup due to an allergic cause. As we have discussed you have had swollen lymph nodes for almo st 4 months and should these not resolve with treatment that you received here today over the next 1-2 weeks, you need to follow-up with your primary care doctor for consideration of biopsy. Please follow closely with your primary care physician in the next 1-3 days. Return if you pass out, have additional episodes of lightheadedness, develop weakness/numbness, have persistent vomiting, chest pain, shortness of breath or any other symptoms that are concerning to you Prescriptions: Amoxicillin 1 tab PO TID #30 tab Cetirizine HCl [Zyrtec] 10 mg PO DAILY 30 Days capsule Referrals: IGNACIA DELCID MD [Primary Care Provider] - Follow up tomorrow
[2018-07-23 19:18] VITALS: BP 160/76
== END 2018-07-23 19:22 | disposition home or self-care (01) ==
LOC: ER 14:01
DX: H65.111 Acute and subacute allergic otitis media (mucoid) (sanguinous) (serous), right ear (principal); R42 Dizziness and giddiness; R59.1 Generalized enlarged lymph nodes; R31.9 Hematuria, unspecified; I10 Essential (primary) hypertension
CPT/HCPCS: 93005; 99285; 36415; 85025; 85610; 85730; 80053; 81001; 84484; 71045; 70450; 93010; A9270 ×3

== ENCOUNTER 2019-01-01 13:00 | Emergency (ER) | payer MEDICARE, BC ==
[2019-01-01 13:18] VITALS: BP 159/87
--- NOTE | 2019-01-01 13:28 | ER Document Report ---
HPI - HPI Time Seen by Provider: 01/01/19 13:17 Pain Level: 5 Notes: Patient is an 83-year-old female with a history of hypertension and chronic kidney disease, not on dialysis, who presents complaining of possible insect bite to right scapular area that is been present for the past couple days. Patient does notice pain/burning associated with it. They have not noticed any purulent discharge, abscess, or streaks. Patient states that she had a another spot on her chin which is almost gone at this point. She is eating and drinking without difficulties. She is urinating normally. She is no other concerns or complaints. Denies drug allergies. Denies any headache, fever, URI, sore throat, chest pain, palpitations, syncope, cough, shortness of breath, wheeze, dyspnea, abdominal pain, nausea/vomiting/diarrhea, urinary retention, dysuria, hematuria. - ROS Systems Reviewed and Negative: Yes All other systems reviewed and negative - REPRODUCTIVE Reproductive: DENIES: : Past Medical History - Social History Smoking Status: Never Smoker Family History: Reviewed & Not Pertinent - Past Medical History Cardiac Medical History: Reports: Hx Hypercholesterolemia, Hx Hypertension Denies: Hx Coronary Artery Disease, Hx Heart Attack Pulmonary Medical History: Denies: Hx Asthma, Hx Bronchitis, Hx COPD, Hx Pneumonia Neurological Medical History: Denies: Hx Cerebrovascular Accident, Hx Seizures Renal/ Medical History: Reports: Hx Kidney Stones. Denies: Hx Peritoneal Dialysis GI Medical History: Reports: Hx Gastroesophageal Reflux Disease. 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 Denies: Hx Mastectomy, Hx Open Heart Surgery, Hx Pacemaker - Immunizations Hx Diphtheria, Pertussis, Tetanus Vaccination: Yes Hx Pneumococcal Vaccination: 07/07/14 Vertical Provider Document - CONSTITUTIONAL Agree With Documented VS: Yes Notes: PHYSICAL EXAMINATION: GENERAL: Well-appearing, well-nourished and in no acute distress. LUNGS: Breath sounds clear to auscultation bilaterally and equal. No wheezes rales or rhonchi. HEART: Regular rate and rhythm without murmurs, rubs, gallops. Extremities: No cyanosis, clubbing, or edema b/l. Peripheral pulses 2+. Capillary refill less than 3 seconds. NEUROLOGICAL: Cranial nerves grossly intact. Normal speech, normal gait. Normal sensory, motor exams PSYCH: Normal mood, normal affect. SKIN: Rt superior scapular area: there is a mildly erythemic macular area approx 1cm diameter w/o induration or fluctuance noted. No streaks. No significant tenderness. + mild warmth. No necrosis or ulceration noted. No erythema migrans. - INFECTION CONTROL TRAVEL OUTSIDE OF THE [place] IN LAST 30 DAYS: No Course - Re-evaluation Re-evalutation: 01/01/19 13:25 Patient is an afebrile, well-hydrated, 83-year-old female who presents with possible insect bite to her right scapular area without evidence of abscess or significant necrosis. No incision and drainage is warranted. I question histamine versus mild cellulitic area. Vitals are acceptable without significant tachycardia, tachypnea, or hypoxia. PE is otherwise unremarkable. Patient is nontoxic-appearing and is tolerating p.o. without difficulty. No work-up warranted at this time. Low suspicion for any necrotizing fasciitis, SJS, SSS, drug reaction, sepsis, meningitis, syphilis, Lyme disease, Cherokee spotted fever, or other systemic emergent condition at this time. Patient aware that condition can change from initial presentation and she needs to monitor symptoms closely and seek medical attention with any acute changes. We will send her home on a prescription for doxycycline as she has chronic kidney disease and no dosage adjustments need to be made with renal impairment. Sunlight precautions reviewed. Recheck with your PCM in 2 to 3 days. Consider consult with dermatology. Return to the ED with any other worsening/concerning symptoms as reviewed. Patient is in agreement. - Vital Signs Vital signs: Temp Pulse Resp BP Pulse Ox 98.1 F 62 16 159/87 H 99 01/01/19 13:17 01/01/19 13:17 01/01/19 13:17 01/01/19 13:17 01/01/19 13:17 Discharge - Discharge Clinical Impression: Insect bite Qualifiers: Encounter type: initial encounter Site of insect bite: shoulder Laterality: right Qualified Code(s): S40.261A - Insect bite (nonvenomous) of right shoulder, initial encounter; W57.XXXA - Bitten or stung by nonvenomous insect and other nonvenomous arthropods, initial encounter Condition: Stable Disposition: HOME, SELF-CARE Instructions: Swollen Insect Bite or Sting ([facility]) Additional Instructions: Keep the skin clean Wash with soap and water Tylenol/ibuprofen if needed Triple antibiotic ointment daily for any break in the skin May try Benadryl cream Take medication as directed Monitor for any worsening symptoms Recheck with your PCM in 2-3 days Consider consult with dermatology urgeon for ongoing/worsening symptoms Return to the ED with any worsening symptoms and/or development of fever, headache, chest pain, palpitations, syncope, shortness of breath, trouble breathing, abdominal pain, n/v/d, abscess, purulent discharge, red streaks, worsening swelling, or other worsening symptoms that are concerning to you. Prescriptions: Doxycycline Hyclate 100 mg PO BID #14 capsule Forms: Elevated Blood Pressure Referrals: IGNACIA DELCID MD [Primary Care Provider] - 01/03/19
== END 2019-01-01 13:34 | disposition home or self-care (01) ==
LOC: ER 13:00
DX: S40.261A Insect bite (nonvenomous) of right shoulder, initial encounter (principal); W57.XXXA Bitten or stung by nonvenomous insect and other nonvenomous arthropods, initial encounter; Z90.49 Acquired absence of other specified parts of digestive tract; Z90.710 Acquired absence of both cervix and uterus; E78.00 Pure hypercholesterolemia, unspecified; I10 Essential (primary) hypertension; Z87.442 Personal history of urinary calculi
CPT/HCPCS: 99282

== ENCOUNTER 2019-11-22 21:47 | Emergency (ER) | payer MEDICARE, BC ==
[2019-11-22] MEDS ORDERED: ASPIRIN 81 MG TABLET, CHEWABLE PO ONE (22:03)
--- NOTE | 2019-11-22 22:05 | ER Document Report ---
ED Medical Screen (RME) - General Chief Complaint: Chest Pain Stated Complaint: CHEST TIGHTNESS Time Seen by Provider: 11/22/19 22:03 Primary Care Provider: IGNACIA DELCID MD [Primary Care Provider] - Follow up as needed Mode of Arrival: Ambulatory Information source: Patient Notes: 84-year-old female presents to ED for complaint of chest pain to the right side of her chest pain she states is been coming and going all day. She states her pain level is a 0 right this minute. She states she does not have a gallbladder that has been removed. She states when the pain does come it makes her very short of breath. She is alert oriented respirations regular nonlabored speaking in full sentences. Chest are clear to auscultation at this time. I have greeted and performed a rapid initial assessment of this patient. A comprehensive ED assessment and evaluation of the patient, analysis of test results and completion of medical decision making process will be conducted by an additional ED providers. TRAVEL OUTSIDE OF THE [place] IN LAST 30 DAYS: No - Related Data Allergies/Adverse Reactions: No Known Allergies Allergy (Verified 01/01/19 13:03) Home Medications: Dexala, Aspirin Past Medical History - Past Medical History Cardiac Medical History: Reports: Hx Hypercholesterolemia, Hx Hypertension Denies: Hx Coronary Artery Disease, Hx Heart Attack Pulmonary Medical History: Denies: Hx Asthma, Hx Bronchitis, Hx COPD, Hx Pneumonia Neurological Medical History: Denies: Hx Cerebrovascular Accident, Hx Seizures Renal/ Medical History: Reports: Hx Kidney Stones. Denies: Hx Peritoneal Dialysis GI Medical History: Reports: Hx Gastroesophageal Reflux Disease. 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 Denies: Hx Mastectomy, Hx Open Heart Surgery, Hx Pacemaker - Immunizations Hx Diphtheria, Pertussis, Tetanus Vaccination: Yes Physical Exam - Vital signs Vitals: Temp 98.5 F 11/22/19 22:00 Course - Vital Signs Vital signs: Temp Pulse Resp BP Pulse Ox 98.5 F 11/22/19 22:00 Doctor's Discharge - Discharge Referrals: IGNACIA DELCID MD [Primary Care Provider] - Follow up as needed
--- NOTE | 2019-11-22 22:56 | RADIOLOGY REPORT (SQ) ---
EXAM DESCRIPTION: XR CHEST 2 VIEWS COMPLETED DATE/TME: 11/22/2019 22:03 CLINICAL HISTORY: 84 years, Female, Chest pain COMPARISON: 07/23/2018 chest NUMBER OF VIEWS: 2 TECHNIQUE: 2 views of the chest LIMITATIONS: None. FINDINGS: Heart size is normal. Tortuosity of the thoracic aorta. Osteopenia. COPD. Tiny bibasilar effusions and/or pleural thickening. IMPRESSION: Tiny bibasilar effusions and/or pleural thickening. COPD. copyright 2010 [employer]- All Rights Reserved
[2019-11-22 23:03] LABS: ALBUMIN 4.6 g/dL (3.5-5.0); ALKALINE PHOSPHATASE 40 U/L (38-126); ANION GAP 10 (5-19); ASPARTATE AMINO TRANSFERASE 27 U/L (14-36); BILIRUBIN,TOTAL 0.5 mg/dL (0.2-1.3); BLOOD UREA NITROGEN 26 mg/dL (7-20); CALCIUM 10.1 mg/dL (8.4-10.2); CARBON DIOXIDE 29 mmol/L (22-30); CHLORIDE 99 mmol/L (98-107); GLUCOSE 134 mg/dL (75-110); POTASSIUM 3.5 mmol/L (3.6-5.0); TOTAL PROTEIN 8.2 g/dL (6.3-8.2)
--- NOTE | 2019-11-22 23:19 | ER Document Report ---
ED General - General Chief Complaint: Chest Pain Stated Complaint: CHEST TIGHTNESS Time Seen by Provider: 11/22/19 22:03 Primary Care Provider: IGNACIA DELCID MD [Primary Care Provider] - Follow up as needed Mode of Arrival: Ambulatory Information source: Patient Notes: 84-year-old female patient presented to the emergency department chief complaint of right-sided chest pain. She states the pain has been intermittent all day. She states that shoots straight through to her back. She states the pain makes her feel short of breath. She denies any nausea, vomiting or radiation of the pain. She denies ever seeing a automatic stacker. TRAVEL OUTSIDE OF THE [place] IN LAST 30 DAYS: No - Related Data Allergies/Adverse Reactions: No Known Allergies Allergy (Verified 01/01/19 13:03) Home Medications: Dexala, Aspirin Past Medical History - General Information source: Patient - Social History Smoking Status: Never Smoker Frequency of alcohol use: None Drug Abuse: None Lives with: Family Family History: Reviewed & Not Pertinent Patient has homicidal ideation: No - Past Medical History Cardiac Medical History: Reports: Hx Hypercholesterolemia, Hx Hypertension Denies: Hx Coronary Artery Disease, Hx Heart Attack Pulmonary Medical History: Denies: Hx Asthma, Hx Bronchitis, Hx COPD, Hx Pneumonia Neurological Medical History: Denies: Hx Cerebrovascular Accident, Hx Seizures Renal/ Medical History: Reports: Hx Kidney Stones. Denies: Hx Peritoneal Dialysis GI Medical History: Reports: Hx Gastroesophageal Reflux Disease. 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 Denies: Hx Mastectomy, Hx Open Heart Surgery, Hx Pacemaker - Immunizations Hx Diphtheria, Pertussis, Tetanus Vaccination: Yes Hx Pneumococcal Vaccination: 07/07/14 Review of Systems - Review of Systems Cardiovascular: Chest pain Musculoskeletal: Back pain -: Yes All other systems reviewed and negative Physical Exam - Vital signs Vitals: Temp Pulse Resp BP Pulse Ox 98.5 F 70 18 152/83 H 100 11/22/19 21:58 11/22/19 21:58 11/22/19 21:58 11/22/19 21:58 11/22/19 21:58 - Notes Notes: PHYSICAL EXAMINATION: GENERAL: Well-appearing, well-nourished, appears stated age and in no acute distress. HEAD: Atraumatic, normocephalic. EYES: Pupils equal round and reactive to light, extraocular movements intact, conjunctiva are normal. ENT: Nares patent, oropharynx clear without exudates. Moist mucous membranes. NECK: Normal range of motion, supple without lymphadenopathy LUNGS: Breath sounds clear to auscultation bilaterally and equal. No wheezes rales or rhonchi. HEART: Regular rate and rhythm without murmurs ABDOMEN: Soft, nontender, nondistended abdomen. No guarding, no rebound. No masses appreciated. Female : deferred Musculoskeletal: Normal range of motion, no pitting or edema. No cyanosis. Tenderness with palpation to the right scapula and the right anterior chest wall. NEUROLOGICAL: Cranial nerves grossly intact. Normal speech, normal gait. Normal sensory, motor exams PSYCH: Normal mood, normal affect. SKIN: Warm, Dry, normal turgor, no rashes or lesions noted. Course - Re-evaluation Re-evalutation: 11/22/19 23:28 EKG shows a sinus rhythm, rate of 69, QTc 429. No ST segment elevations or depressions to suggest ischemia, normal axis. Laboratory 11/22/19 11/22/19 22:38 22:38 Sodium 137.8 Potassium 3.5 L Chloride 99 Carbon Dioxide 29 Anion Gap 10 BUN 26 H Creatinine 1.21 Est GFR ( Amer) 51 L Est GFR (MDRD) Non-Af 42 L Glucose 134 H Calcium 10.1 Magnesium 2.0 Total Bilirubin 0.5 Direct Bilirubin 0.0 Neonat Total Bilirubin Not Reportable Neonat Direct Bilirubin Not Reportable Neonat Indirect Bili Not Reportable AST 27 ALT 12 Alkaline Phosphatase 40 Troponin I < 0.012 Total Protein 8.2 Albumin 4.6 Lipase 382.1 H Chest X-Ray 11/22/19 22:03 IMPRESSION: Tiny bibasilar effusions and/or pleural thickening. COPD. copyright 2011 [employer]- All Rights Reserved 11/23/19 01:44 Patient's pain is reproducible on the right scapula and right chest wall. Patient given a dose of ibuprofen and Robaxin. If patient second troponin is negative she will be discharged home. Presentation of chest pain in an otherwise well appearing patient. Low clinical suspicion for ACS given clinical history, exam, EKG without ST elevations or depressions, and negative initial troponin. HEART score less than or equal to 3. PE also seems unlikely given clinical history, absence of tachycardia or dyspnea. Patient is PERC criteria negative. CXR without evidence of pneumothorax or pneumonia. No widened mediastinum. Aortic dissection also seems unlikely given history, symmetric pulses, CXR, and vitals. HEART Score: History 0 ECG 0 Age +2 Risk Factors +1 Troponin 0 Total: 3 Chest pain in a patient without evidence of cardiac or other serious etiology on workup today. I discussed with patient that, based on their age, risk factors and emergency department testing today, the likelihood that their symptoms are related to a heart attack is very low (estimated risk of heart attack or over the next 30 days of less than 1%). The patient demonstrates decision making capacity and has verbalized an understanding of these risks to me. Based on this, the patient has chosen to follow-up as an outpatient. Usual chest pain return precautions reviewed. The patient states understanding and agreement with this plan. 11/23/19 02:31 Repeat troponin is negative. Patient's heart score is 3. Likely pain is mu sculoskeletal in nature. She will be sent home with a prescription for Robaxin and close follow-up with her primary care physician. - Vital Signs Vital signs: Temp Pulse Resp BP Pulse Ox 98.5 F 60 8 L 177/84 H 100 11/22/19 22:00 11/22/19 22:03 11/23/19 01:00 11/22/19 23:30 11/23/19 01:00 - Laboratory Result Diagrams: 11/22/19 22:38 11/22/19 22:38 Laboratory results interpreted by me: 11/22/19 11/22/19 22:38 22:38 Hct 35.8 L Potassium 3.5 L BUN 26 H Est GFR ( Amer) 51 L Est GFR (MDRD) Non-Af 42 L Glucose 134 H Lipase 382.1 H Discharge - Discharge Clinical Impression: Pain of right scapula Chest pain Qualifiers: Chest pain type: unspecified Qualified Code(s): R07.9 - Chest pain, unspecified Condition: Stable Disposition: HOME, SELF-CARE Additional Instructions: Chest Wall Pain Your chest pain has been diagnosed as coming from the chest wall. This is often caused by straining the muscles or joints in the chest during physical activity, direct trauma, coughing, or vigorous vomiting. Persons with arthritis are especially prone to this type of pain, due to inflammation of the cartilage joints near the breast bone. Occasionally, no cause can be found. Rest from strenuous physical activity. This kind of chest pain is usually made worse by movement of the chest. Depending on the symptoms, we may prescribe medicine for pain, muscle relaxation, and antiinflammatory effects. If the pain is new, and seems to be due to muscle strain, cold packs can help. Otherwise, apply gentle warmth to the painful area for 15 minutes every hour or two. You should contact the doctor immediately if things change. Further evaluation is needed if you develop a fever or cough, if the nature of the pain changes, or if you become short of breath. Please take medication as prescribed. Please also take ibuprofen 600 mg every 6 hours for pain and inflammation. Please call tomorrow to schedule an appointment with your primary care provider for follow-up. Return to the emerge ncy department for any new or worsening symptoms. Prescriptions: Methocarbamol [Robaxin 500 mg Tablet] 500 mg PO Q6H PRN #16 tablet PRN Reason: Muscle Spasms Referrals: IGNACIA DELCID MD [Primary Care Provider] - Follow up as needed
[2019-11-22 23:36] LABS: ABSOLUTE BASOPHILS # (AUTO) 0.1 10^3/uL (0.0-0.2); ABSOLUTE EOSINOPHILS # (AUTO) 0.1 10^3/uL (0.0-0.6); ABSOLUTE LYMPHOCYTES (AUTO) 2.2 10^3/uL (0.5-4.7); ABSOLUTE MONOCYTES (AUTO) 0.5 10^3/uL (0.1-1.4); ABSOLUTE NEUT (AUTO) 2.2 10^3/uL (1.7-8.2); BASOPHILS % (AUTO) 1.1 % (0-2); EOSINOPHILS % (AUTO) 1.4 % (0-6); HEMATOCRIT 35.8 % (36.0-47.0); HEMOGLOBIN 12.4 g/dL (12.0-15.5); LYMPHOCYTES % (AUTO) 43.7 % (13-45); MEAN CORPUSCULAR HGB CONC 34.5 g/dL (32.0-36.0); MEAN CORPUSCULAR VOLUME 87 fl (80-97); MONOCYTES % (AUTO) 9.1 % (3-13); PLATELET COUNT 202 10^3/uL (150-450); RED BLOOD COUNT 4.12 10^6/uL (3.72-5.28); RED CELL DISTRIBUTION WIDTH 13.8 % (11.5-14.0); SEGMENTED NEUTROPHILS % (AUTO) 44.7 % (42-78); TOTAL CELLS COUNTED % (AUTO) 100 %
[2019-11-23] MEDS ORDERED: IBUPROFEN 600 MG TABLET PO ONE (01:05)
[2019-11-23] MEDS ORDERED: METHOCARBAMOL 500 MG TABLET PO ONE (01:05)
[2019-11-23 03:11] VITALS: BP 178/83
--- NOTE | 2019-11-23 08:39 | EKG REPORT ---
SEVERITY:- ABNORMAL ECG - SINUS RHYTHM ATRIAL PREMATURE COMPLEX PROBABLE LEFT ATRIAL ABNORMALITY LEFT ANTERIOR FASCICULAR BLOCK PROBABLE LEFT VENTRICULAR HYPERTROPHY : Confirmed by: Erika Charles 23-Nov-2019 08:38:36
== END 2019-11-23 03:17 | disposition home or self-care (01) ==
LOC: ER 21:47
DX: M25.511 Pain in right shoulder (principal); R07.9 Chest pain, unspecified; E78.00 Pure hypercholesterolemia, unspecified; I10 Essential (primary) hypertension; Z87.442 Personal history of urinary calculi; Z90.49 Acquired absence of other specified parts of digestive tract; Z90.710 Acquired absence of both cervix and uterus
CPT/HCPCS: 93005; 99285; 36415; 83690; 83735; 85025; 80053; 84484; 71046; 93010; A9270 ×3

== ENCOUNTER 2020-04-05 14:42 | Emergency (ER) | payer MEDICARE, BC ==
[2020-04-05] MEDS ORDERED: ASPIRIN 81 MG TABLET, CHEWABLE PO ONE (15:23)
--- NOTE | 2020-04-05 15:25 | ER Document Report ---
ED Medical Screen (RME) - General Chief Complaint: Chest Pressure Stated Complaint: CHEST DISCOMFORT/PRESSURE Time Seen by Provider: 04/05/20 15:17 Primary Care Provider: IGNACIA PALOMARES MD [Primary Care Provider] - Follow up as needed TRAVEL OUTSIDE OF THE [place] IN LAST 30 DAYS: No - HPI Notes: 04/05/20 15:23 84-year-old female to the emergency department with complaints of midsternal and left-sided chest pain that radiates through to her back with associated shortness of breath that began yesterday. She states that it came on suddenly and she immediately felt weakness in her legs. She states that it has gotten a little bit better but she continues to have weakness and some mild chest pressure. She has never had a heart attack before. She denies any family history of heart disease. She states that she is not been sweating or having nausea and vomiting with it. She denies any arm pain. She does have a history of high cholesterol and hypertension. She is not diabetic. She takes a daily baby aspirin and did take a baby aspirin this morning. Dr. Ignacia Palomares is her primary care physician. I performed a brief medical screening exam on the patient determined that the patient needs further evaluation and management by main side provider. I have placed initial orders to help expedite care. - Related Data Allergies/Adverse Reactions: No Known Allergies Allergy (Verified 01/01/19 13:03) Past Medical History - Past Medical History Cardiac Medical History: Reports: Hx Hypercholesterolemia, Hx Hypertension Denies: Hx Coronary Artery Disease, Hx Heart Attack Pulmonary Medical History: Denies: Hx Asthma, Hx Bronchitis, Hx COPD, Hx Pneumonia Neurological Medical History: Denies: Hx Cerebrovascular Accident, Hx Seizures Renal/ Medical History: Reports: Hx Kidney Stones. Denies: Hx Peritoneal Dialysis GI Medical History: Reports: Hx Gastroesophageal Reflux Disease. 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 Denies: Hx Mastectomy, Hx Open Heart Surgery, Hx Pacemaker - Immunizations Hx Diphtheria, Pertussis, Tetanus Vaccination: Yes Physical Exam - Vital signs Vitals: Temp Pulse Resp BP Pulse Ox 98.3 F 68 18 160/97 H 99 04/05/20 14:55 04/05/20 14:55 04/05/20 14:55 04/05/20 14:55 04/05/20 14:55 Course - Vital Signs Vital signs: Temp Pulse Resp BP Pulse Ox 98.3 F 68 18 160/97 H 99 04/05/20 14:55 04/05/20 14:55 04/05/20 14:55 04/05/20 14:55 04/05/20 14:55 Doctor's Discharge - Discharge Referrals: IGNACIA PALOMARES MD [Primary Care Provider] - Follow up as needed
--- NOTE | 2020-04-05 16:11 | RADIOLOGY REPORT (SQ) ---
EXAM DESCRIPTION: CHEST SINGLE VIEW IMAGES COMPLETED DATE/TIME: 04/05/2020 3:51 pm REASON FOR STUDY: chest pain, weakness COMPARISON: 11/22/2019 EXAM PARAMETERS: NUMBER OF VIEWS: One view. TECHNIQUE: Single frontal radiographic view of the chest acquired. RADIATION DOSE: NA LIMITATIONS: None. FINDINGS: LUNGS AND PLEURA: No opacities, masses or pneumothorax. No pleural effusion. MEDIASTINUM AND HILAR STRUCTURES: No masses. Contour normal. HEART AND VASCULAR STRUCTURES: Heart normal in size. Normal vasculature. BONES: No acute findings. HARDWARE: None in the chest. OTHER: No other significant finding. IMPRESSION: NO ACUTE RADIOGRAPHIC FINDING IN THE CHEST. TECHNICAL DOCUMENTATION: JOB ID: [id number] 2010 [employer]- All Rights Reserved Reading location - IP/workstation name: [email or web address]
[2020-04-05 20:32] LABS: INTERNATIONAL RATION (INR) 1.11; PROTHROMBIN TIME 14.5 SEC (11.4-15.4)
[2020-04-05 20:33] LABS: PARTIAL THROMBOPLASTIN TIME 32.6 SEC (23.5-35.8)
[2020-04-05 20:43] LABS: ABSOLUTE EOSINOPHILS # (AUTO) 0.1 10^3/uL (0.0-0.6); ABSOLUTE MONOCYTES (AUTO) 0.4 10^3/uL (0.1-1.4); ABSOLUTE NEUT (AUTO) 2.3 10^3/uL (1.7-8.2); ALBUMIN 4.9 g/dL (3.5-5.0); ALKALINE PHOSPHATASE 50 U/L (38-126); ANION GAP 13 (5-19); ASPARTATE AMINO TRANSFERASE 34 U/L (14-36); BASOPHILS % (AUTO) 0.9 % (0-2); BILIRUBIN,DIRECT 0.4 mg/dL (0.0-0.4); BILIRUBIN,TOTAL 0.7 mg/dL (0.2-1.3); BLOOD UREA NITROGEN 30 mg/dL (7-20); CALCIUM 9.6 mg/dL (8.4-10.2); CARBON DIOXIDE 26 mmol/L (22-30); CHLORIDE 103 mmol/L (98-107); EOSINOPHILS % (AUTO) 2.2 % (0-6); GLUCOSE 95 mg/dL (75-110); HEMATOCRIT 42.1 % (36.0-47.0); HEMOGLOBIN 14.3 g/dL (12.0-15.5); LYMPHOCYTES % (AUTO) 41.9 % (13-45); MEAN CORPUSCULAR HEMOGLOBIN 29.5 pg (27.0-33.4); MEAN CORPUSCULAR HGB CONC 33.9 g/dL (32.0-36.0); MEAN CORPUSCULAR VOLUME 87 fl (80-97); MONOCYTES % (AUTO) 8.1 % (3-13); PLATELET COUNT 206 10^3/uL (150-450); POTASSIUM 3.8 mmol/L (3.6-5.0); RED BLOOD COUNT 4.83 10^6/uL (3.72-5.28); RED CELL DISTRIBUTION WIDTH 13.5 % (11.5-14.0); SEGMENTED NEUTROPHILS % (AUTO) 46.9 % (42-78); TOTAL CELLS COUNTED % (AUTO) 100 %; TOTAL PROTEIN 9.4 g/dL (6.3-8.2); WHITE BLOOD COUNT 4.8 10^3/uL (4.0-10.5)
--- NOTE | 2020-04-05 20:44 | ER Document Report ---
ED General - General Chief Complaint: Chest Pain Stated Complaint: CHEST DISCOMFORT/PRESSURE Time Seen by Provider: 04/05/20 15:17 Primary Care Provider: IGNACIA DELCID MD [Primary Care Provider] - Follow up tomorrow TRAVEL OUTSIDE OF THE [place] IN LAST 30 DAYS: No - HPI Context: This is a 84-year-old female who presents to the emergency department for evaluation of an episode of chest pain that occurred yesterday just after lunchtime. Patient states that she was turning from the lunch table to take the plates to the kitchen sink to wash them and felt sudden onset of chest pain that she describes as sharp and was so severe it "made her legs buckle." Patient states the symptoms only lasted a couple of seconds and have not returned since then. Patient denies fever, chills, cough, loss of sense of taste or sense of smell, dyspnea, history of being COVID positive or coming in contact with persons positive for under suspicion for COVID. Patient states nothing exacer means or alleviates the symptoms. And other than feeling hungry at this time she feels just fine. Patient states that her is chronically ill and home alone and she tends to him. She denies any type of physical strain recently that might have led to onset of symptoms. Patient states she does not have any home health resources to help care for her . Patient states she is willing to "just get checked out" but does not want to be admitted to the hospital. Associated symptoms: Other - See HPI Exacerbated by: Other - See HPI Relieved by: Other - See HPI Similar symptoms previously: Yes Recently seen / treated by doctor: No - Related Data Allergies/Adverse Reactions: No Known Allergies Allergy (Verified 01/01/19 13:03) Home Medications: Simvastatin, Nifedipine, Dexilant Past Medical History - General Information source: Patient - Social History Smoking Status: Unknown if Ever Smoked Frequency of alcohol use: None Lives with: Spouse/Significant other Family History: Reviewed & Not Pertinent Patient has suicidal ideation: No Patient has homicidal ideation: No - Past Medical History Cardiac Medical History: Reports: Hx Hypercholesterolemia, Hx Hypertension Denies: Hx Coronary Artery Disease, Hx Heart Attack Pulmonary Medical History: Denies: Hx Asthma, Hx Bronchitis, Hx COPD, Hx Pneumonia Neurological Medical History: Denies: Hx Cerebrovascular Accident, Hx Seizures Renal/ Medical History: Reports: Hx Kidney Stones. Denies: Hx Peritoneal Dialysis GI Medical History: Reports: Hx Gastroesophageal Reflux Disease. 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 Denies: Hx Mastectomy, Hx Open Heart Surgery, Hx Pacemaker - Immunizations Hx Diphtheria, Pertussis, Tetanus Vaccination: Yes Hx Pneumococcal Vaccination: 07/07/14 Review of Systems - Review of Systems Constitutional: See HPI, Weakness EENT: No symptoms reported Cardiovascular: Chest pain Respiratory: No symptoms reported Gastrointestinal: No symptoms reported Genitourinary: No symptoms reported Female Genitourinary: No symptoms reported Musculoskeletal: No symptoms reported Skin: No symptoms reported Hematologic/Lymphatic: No symptoms reported Neurological/Psychological: No symptoms reported -: Yes All other systems reviewed and negative Physical Exam - Vital signs Vitals: Temp Pulse Resp BP Pulse Ox 98.3 F 68 18 160/97 H 99 04/05/20 14:55 04/05/20 14:55 04/05/20 14:55 04/05/20 14:55 04/05/20 14:55 - Notes Notes: CONSTITUTIONAL [Vital signs reviewed, Patient appears comfortable, Alert and oriented X 3, Normal stature.] HEAD [Atraumatic, Normocephalic.] EYES [Eyes are normal to inspection, No discharge from eyes, Extraocular muscles intact, Sclera are normal, Conjunctiva are normal.] NECK [Normal ROM, No jugular venous distention, No meningeal signs, no carotid bruit.] RESPIRATORY CHEST [Chest is nontender, Breath sounds normal, No respiratory distress.] CARDIOVASCULAR [RRR, No murmurs, Normal S1 S2, No rub, No gallop.] ABDOMEN [Abdomen is nontender, No pulsatile masses, No other masses, Bowel sounds normal, No distension, No peritoneal signs, No hernias.] BACK [There is no CVA Tenderness, There is no tenderness to palpation, Normal inspection.] UPPER EXTREMITY [Inspection normal, No cyanosis, No clubbing, No edema, 2+ radial pulses.] LOWER EXTREMITY [Inspection normal, No cyanosis, No clubbing, No edema, No calf tenderness, 2+ femoral pulses.] NEURO [No focal motor deficits, No focal sensory deficits, Speech normal.] SKIN [Skin is warm, Skin is dry, Skin is normal color.] LYMPHATIC [No adenopathy in neck.] PSYCHIATRIC [Normal affect. ] Course - Re-evaluation Re-evalutation: 04/05/20 21:40 Results of ED MSE discussed with patient. Patient states that she does not want to be admitted. Patient states that she has a chronically ill at home that she needs to go home and care for her. This MD discussed with patient risks of leaving AGAINST MEDICAL ADVICE which include but are not limited to permanent disability, failure to diagnose, permanent disability and/or . P monica expressed understanding of the risks and decided that she still wants to be discharged home. Patient was encouraged to return at any time if she decides to seek further medical evaluation or treatment. Patient encouraged to call 911 if she decides to seek further treatment. Patient also encouraged to follow-up with her primary care provider tomorrow. All questions were answered prior to discharge. - Vital Signs Vital signs: Temp Pulse Resp BP Pulse Ox 97.9 F 68 16 147/86 H 99 04/05/20 21:00 04/05/20 14:55 04/05/20 21:00 04/05/20 21:00 04/05/20 14:55 - Laboratory Result Diagrams: 04/05/20 19:55 04/05/20 19:55 Laboratory results interpreted by me: 04/05/20 19:55 BUN 30 H Est GFR ( Amer) 52 L Est GFR (MDRD) Non-Af 43 L Total Protein 9.4 H - Diagnostic Test Radiology reviewed: Reports reviewed - EKG Interpretation by Me Additional EKG results interpreted by me: 04/05/20 20:47 EKG obtained on 04/05/2020 at 1615 hrs. was interpreted by this MD. Findings: Sinus bradycardia, rate 59, borderline left axis deviation, WA interval appears to be within normal limits, P waves preceding QRS complexes, QRS complexes appear narrow, QTC is 452, there are no obvious patterns of ST segment elevation or depression visualized to suggest acute myocardial ischemia or infarction. This EKG was compared with prior EKG from 11/22/2019. Grossly, morphology of prior EKG and today's EKG shows no significant changes other than rate being 69 instead of 59. Impression: Sinus bradycardia with borderline left axis deviation and nonspecific ST segments. Discharge - Discharge Clinical Impression: Chest pain Qualifiers: Chest pain type: unspecified Qualified Code(s): R07.9 - Chest pain, unspecified Disposition: AGAINST MEDICAL ADVICE Additional Instructions: Return to the Emergency Department without delay if any worse. The exact cause of your episode of chest pain is not clear at this point. You have decided to leave AGAINST MEDICAL ADVICE. If you decide at any time to r eturn to the emergency department and seek further treatment please do so by calling 911. HOME CARE INSTRUCTIONS & INFORMATION: Thank you for choosing us for your medical needs. We hope you're satisfied with the care you received. After you leave, you must properly care for your problem and, at the same time, observe its progress. Any condition can change. Some illnesses can change rapidly over hours or days. If your condition worsens, return to the Emergency Department or see your physician promptly. ABOUT YOUR X-RAYS AND EKG'S: If you had an EKG or X-rays taken, they have been read by the Emergency Physician. The X-rays and EKG's will also be read by a Radiologist or Box [employer] Maker within 24 hours. If discrepancies are noted, you will be notified by telephone. Please be certain the ED has a correct telephone number & address where you can be reached. Also, realize that some fractures or abnormalities do not show up on initial X-rays. If your symptoms continue, see your physician. ABOUT YOUR LABORATORY TEST: If you had laboratory tests, the results have been reviewed by the Emergency Physician. Some test results (for example cultures) may not be available for several days. You will be contacted if any test result shows you need additional treatment. Please be certain the ED has a correct telephone number and address where you can be reached. ABOUT YOUR MEDICATIONS: You will receive instructions on how to take your medicine on the prescription label you receive. Additional information may be provided by the Pharmacy. If you have questions afterwards, call the ED for clarification or further instructions. Some prescribed medications may cause drowsiness. Do not perform tasks such as driving a car or operating machinery without consulting your Pharmacist. If you feel you need a refill of pain medication, your condition will need re-evaluation. Please do not call for a refill of any medication. ABOUT YOUR SIGNATURE: Signature of this document acknowledges to followin. Understanding that you received emergency treatment and that you may be released before al medical problems are known or treated. Please be certain the ED has a correct phone number & address where you can be reached. 2. Acknowledgement that you will arrange for follow-up care as recommended. 3. Authorization for the Emergency Physician to provide information to your follow-up Physician in order to maximize your care. AT ANY TIME, IF YOUR SYMPTOMS CHANGE SIGNIFICANTLY OR WORSEN OR YOU DEVELOP NEW SYMPTOMS, RETURN TO THE EMERGENCY DEPARTMENT IMMEDIATELY FOR RE-EVALUATION. OUR GOAL IS TO PROVIDE EXCELLENT MEDICAL CARE! WE HOPE THAT WE HAVE MET YOUR EXPECTATIONS DURING YOUR EMERGENCY DEPARTMENT VISIT AND THAT YOU FEEL YOU HAVE RECEIVED EXCELLENT CARE! Referrals: IGNACIA DELCID MD [Primary Care Provider] - Follow up tomorrow
[2020-04-05 20:55] LABS: NT PRO BNP 145 pg/mL (<450)
[2020-04-05 20:58] LABS: TROPONIN I < 0.012 ng/mL
--- NOTE | 2020-04-05 22:03 | EKG REPORT ---
SEVERITY:- ABNORMAL ECG - SINUS RHYTHM LEFT ATRIAL ABNORMALITY BORDERLINE LEFT AXIS DEVIATION : Confirmed by: Sanjana Vargas MD 05-Apr-2020 22:02:10
[2020-04-05 22:05] VITALS: BP 132/75
== END 2020-04-05 22:14 | disposition left against medical advice (07) ==
LOC: ER 14:42
DX: R07.9 Chest pain, unspecified (principal); R00.1 Bradycardia, unspecified; R53.1 Weakness; E78.00 Pure hypercholesterolemia, unspecified; I10 Essential (primary) hypertension; K21.9 Gastro-esophageal reflux disease without esophagitis; Z79.899 Other long term (current) drug therapy; Z53.29 Procedure and treatment not carried out because of patient's decision for other reasons
CPT/HCPCS: 93005; 99285; 36415; 83735; 85025; 85610; 85730; 80053; 84484; 83880; 71045; 93010; A9270

== ENCOUNTER 2020-06-16 18:22 | Emergency (ER) | payer MEDICARE, BC ==
--- NOTE | 2020-06-16 19:27 | ER Document Report ---
ED Medical Screen (RME) - General Chief Complaint: Palpitations Stated Complaint: CHEST PAIN Primary Care Provider: IGNACIA DELCID MD [Primary Care Provider] - Follow up as needed Mode of Arrival: Medic Information source: Patient Notes: 84-year-old female Ruby to ED for heart racing and feeling like it is beating out of her chest for the last 3 days. She states she is being overwhelmed with care for her disabled and it is making her heart race. She denies any pain at this time. She did ask what all her vital signs meant and what they were and I did review them with her. I have ordered the cardiac work-up for her. She denies any pain at all at this time. She states she does have some shortness of breath at times and the palpitations. I have greeted and performed a rapid initial assessment of this patient. A comprehensive ED assessment and evaluation of the patient, analysis of test results and completion of medical decision making process will be conducted by an additional ED providers. TRAVEL OUTSIDE OF THE [place] IN LAST 30 DAYS: No - Related Data Allergies/Adverse Reactions: No Known Allergies Allergy (Verified 06/16/20 19:22) Past Medical History - Social History Chew tobacco use (# tins/day): No Frequency of alcohol use: None Drug Abuse: None - Past Medical History Cardiac Medical History: Reports: Hx Hypercholesterolemia, Hx Hypertension Denies: Hx Coronary Artery Disease, Hx Heart Attack Pulmonary Medical History: Denies: Hx Asthma, Hx Bronchitis, Hx COPD, Hx Pneumonia Neurological Medical History: Denies: Hx Cerebrovascular Accident, Hx Seizures Renal/ Medical History: Reports: Hx Kidney Stones. Denies: Hx Peritoneal Dialysis GI Medical History: Reports: Hx Gastroesophageal Reflux Disease. 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 Denies: Hx Mastectomy, Hx Open Heart Surgery, Hx Pacemaker - Immunizations Hx Diphtheria, Pertussis, Tetanus Vaccination: Yes Physical Exam - Vital signs Vitals: Temp 98.1 F 06/16/20 18:22 Course - Vital Signs Vital signs: Temp Pulse Resp BP Pulse Ox 98.1 F 83 19 158/104 H 100 06/16/20 19:26 06/16/20 19:26 06/16/20 19:26 06/16/20 19:26 06/16/20 19:26 - Laboratory Result Diagrams: 06/16/20 19:05 06/16/20 19:05 Doctor's Discharge - Discharge Referrals: IGNACIA DELCID MD [Primary Care Provider] - Follow up as needed
[2020-06-16 19:33] LABS: ABSOLUTE LYMPHOCYTES (AUTO) 1.7 10^3/uL (0.5-4.7); ABSOLUTE MONOCYTES (AUTO) 0.5 10^3/uL (0.1-1.4); ABSOLUTE NEUT (AUTO) 4.2 10^3/uL (1.7-8.2); BASOPHILS % (AUTO) 0.8 % (0-2); EOSINOPHILS % (AUTO) 0.6 % (0-6); HEMATOCRIT 38.8 % (36.0-47.0); HEMOGLOBIN 12.8 g/dL (12.0-15.5); MEAN CORPUSCULAR HEMOGLOBIN 28.7 pg (27.0-33.4); MEAN CORPUSCULAR VOLUME 87 fl (80-97); MONOCYTES % (AUTO) 7.6 % (3-13); PLATELET COUNT 175 10^3/uL (150-450); RED BLOOD COUNT 4.46 10^6/uL (3.72-5.28); TOTAL CELLS COUNTED % (AUTO) 100 %; WHITE BLOOD COUNT 6.5 10^3/uL (4.0-10.5)
[2020-06-16 19:54] LABS: ALBUMIN 4.6 g/dL (3.5-5.0); ALKALINE PHOSPHATASE 37 U/L (38-126); ANION GAP 6 (5-19); ASPARTATE AMINO TRANSFERASE 31 U/L (14-36); BILIRUBIN,DIRECT 0.2 mg/dL (0.0-0.4); BILIRUBIN,TOTAL 0.8 mg/dL (0.2-1.3); BLOOD UREA NITROGEN 24 mg/dL (7-20); CALCIUM 9.9 mg/dL (8.4-10.2); CARBON DIOXIDE 31 mmol/L (22-30); CHLORIDE 101 mmol/L (98-107); GLUCOSE 96 mg/dL (75-110); POTASSIUM 3.7 mmol/L (3.6-5.0); TOTAL PROTEIN 8.2 g/dL (6.3-8.2)
--- NOTE | 2020-06-16 20:26 | RADIOLOGY REPORT (SQ) ---
EXAM DESCRIPTION: CHEST 2 VIEWS CLINICAL HISTORY: 84 years Female, chest pain COMPARISON: Single view of the chest 04/05/2020 FINDINGS: Lungs: Lungs are hyperinflated. No focal consolidation. Probable nipple shadows bilaterally. No pneumothorax or pleural effusion. Mediastinum: Cardiac and mediastinal silhouette are unchanged. Bones: Osseous structures are stable. Embolization coils are again seen in the left upper quadrant of the abdomen. IMPRESSION: Hyperinflation. No acute process. No significant interval change.
[2020-06-16 23:16] VITALS: BP 162/98
--- NOTE | 2020-06-16 23:17 | ER Document Report ---
ED General - General Chief Complaint: Palpitations Stated Complaint: CHEST PAIN Time Seen by Provider: 06/16/20 19:27 Primary Care Provider: IGNACIA DELCID MD [Primary Care Provider] - Follow up as needed Mode of Arrival: Ambulatory Information source: Patient Notes: This 4-year-old woman presents to the emergency department with a complaint of palpitations. She states that she has been having intermittent episodes of palpitations over the past 2 days. States that it feels as though her heart is racing and having quick pulse. She presents to the emergency department for further evaluation of palpitations. EKG performed in emergency department reveals a sinus rhythm with left anterior fascicular block. There are no atrial abnormalities noted. TRAVEL OUTSIDE OF THE [place] IN LAST 30 DAYS: No - Related Data Allergies/Adverse Reactions: No Known Allergies Allergy (Verified 06/16/20 19:22) Past Medical History - General Information source: Patient - Social History Smoking Status: Never Smoker Chew tobacco use (# tins/day): No Frequency of alcohol use: None Drug Abuse: None Family History: Reviewed & Not Pertinent Patient has homicidal ideation: No - Past Medical History Cardiac Medical History: Reports: Hx Hypercholesterolemia, Hx Hypertension Denies: Hx Coronary Artery Disease, Hx Heart Attack Pulmonary Medical History: Denies: Hx Asthma, Hx Bronchitis, Hx COPD, Hx Pneumonia Neurological Medical History: Denies: Hx Cerebrovascular Accident, Hx Seizures Renal/ Medical History: Reports: Hx Kidney Stones. Denies: Hx Peritoneal Dialysis GI Medical History: Reports: Hx Gastroesophageal Reflux Disease. 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 Denies: Hx Mastectomy, Hx Open Heart Surgery, Hx Pacemaker - Immunizations Hx Diphtheria, Pertussis, Tetanus Vaccination: Yes Hx Pneumococcal Vaccination: 07/07/14 Review of Systems - Review of Systems Notes: Constitutional: Negative for fever. HENT: Negative for sore throat. Eyes: Negative for visual changes. Cardiovascular: See HPI Respiratory: Negative for shortness of breath. Gastrointestinal: Negative for abdominal pain, vomiting or diarrhea. Genitourinary: Negative for dysuria. Musculoskeletal: Negative for back pain. Skin: Negative for rash. Neurological: Negative for headaches, weakness or numbness. 10 point ROS negative except as marked above and in HPI. Physical Exam - Vital signs Vitals: Temp 98.1 F 06/16/20 18:22 - Notes Notes: PHYSICAL EXAMINATION: Physical Exam: General: Well-nourished well-developed 84-year-old frail female in no acute distress HEENT: NC/AT, pupils equal round and reactive to light, MM moist,nares clear, oropharynx clear, airway patent Neck: supple, no adenopathy, no masses. Good range of motion Lungs: clear, no wheezing, no rales no rhonchi CVS: Regular rate and rhythm no murmur gallop or rub Abdomen: Soft, active, nontender, no masses, no hepatosplenomegaly Ext: No edema, clubbing or cyanosis. Neuro: Alert and responsive, moving all 4 extremities on command, cranial nerves intact, no focal findings Skin: Intact no open lesions, no rash Course - Vital Signs Vital signs: Temp Pulse Resp BP Pulse Ox 98.1 F 83 21 H 162/98 H 98 06/16/20 19:26 06/16/20 19:26 06/16/20 23:10 06/16/20 23:10 06/16/20 23:10 - Laboratory Result Diagrams: 06/16/20 19:05 06/16/20 19:05 Laboratory results interpreted by me: 06/16/20 19:05 Carbon Dioxide 31 H BUN 24 H Est GFR ( Amer) 49 L Est GFR (MDRD) Non-Af 41 L Alkaline Phosphatase 37 L 06/16/20 23:16 I have reviewed laboratory data and used this information for the treatment decisions regarding the patient. - Diagnostic Test Radiology reviewed: Image reviewed, Reports reviewed Radiology results interpreted by me: 06/16/20 23:16 Chest X-Ray 06/16/20 19:21 IMPRESSION: Hyperinflation. No acute process. No significant interval change. - EKG Interpretation by Me Rate: Normal - EKG interpreted by Dr. Butt: Normal sinus rhythm, rate 72, TN interval 160 ms, QT interval 408 ms, left axis deviation,left anterior fascicular block, no acute ST or T wave abnormalities, no ischemic findings,compared to EKG dated 04/05/20, there are no significant interval changes. abnormal EKG Discharge - Discharge Clinical Impression: Palpitations Condition: Good Disposition: HOME, SELF-CARE Instructions: Palpitations (Irregular or Rapid Heartrate) ([facility]) Additional Instructions: You were seen in the emergency department tonight with for palpitations which were occurring over the past few days. Your EKG the and monitor did not show any signs of irregular heartbeat. I have discussed your presentation with the doctor chiropractic, Dr. Membreno. He will arrange for a monitor to be placed next week and will follow you in his office. If you have worsening symptoms or chest pain please return to the emergency department for further evaluation and treatment. HOME CARE INSTRUCTIONS & INFORMATION: Thank you for choosing us for your medical needs. We hope you're satisfied with the care you received. After you leave, you must properly care for your problem and, at the same time, observe i ts progress. Any condition can change. Some illnesses can change rapidly over hours or days. If your condition worsens, return to the Emergency Department or see your physician promptly. ABOUT YOUR X-RAYS AND EKG'S: If you had an EKG or X-rays taken, they have been read by the Emergency Physician. The X-rays and EKG's will also be read by a Radiologist or Salesperson [employer] Hats within 24 hours. If discrepancies are noted, you will be notified by telephone. Please be certain the ED has a correct telephone number & address where you can be reached. Also, realize that some fractures or abnormalities do not show up on initial X-rays. If your symptoms continue, see your physician. ABOUT YOUR LABORATORY TEST: If you had laboratory tests, the results have been reviewed by the Emergency Physician. Some test results (for example cultures) may not be available for several days. You will be contacted if any test result shows you need additional treatment. Please be certain the ED has a correct telephone number and address where you can be reached. ABOUT YOUR MEDICATIONS: You will receive instructions on how to take your medicine on the prescription label you receive. Additional information may be provided by the Pharmacy. If you have questions afterwards, call the ED for clarification or further instructions. Some prescribed medications may cause drowsiness. Do not perform tasks such as driving a car or operating machinery without consulting your Pharmacist. If you feel you need a refill of pain medication, your condition will need re-evaluation. Please do not call for a refill of any medication. ABOUT YOUR SIGNATURE: Signature of this document acknowledges to followin. Understanding that you received emergency treatment and that you may be released before al medical problems are known or treated. Please be certain the ED has a correct phone number & address where you can be reached. 2. Acknowledgement that you will arrange for follow-up care as recommended. 3. Authorization for the Emergency Physician to provide information to your follow-up Physician in order to maximize your care. AT ANY TIME, IF YOUR SYMPTOMS CHANGE SIGNIFICANTLY OR WORSEN OR YOU DEVELOP NEW SYMPTOMS, RETURN TO THE EMERGENCY DEPARTMENT IMMEDIATELY FOR RE-EVALUATION. OUR GOAL IS TO PROVIDE EXCELLENT MEDICAL CARE! WE HOPE THAT WE HAVE MET YOUR EXPECTATIONS DURING YOUR EMERGENCY DEPARTMENT VISIT AND THAT YOU FEEL YOU HAVE RECEIVED EXCELLENT CARE! Referrals: IGNACIA DELCID MD [Primary Care Provider] - Follow up as needed
--- NOTE | 2020-06-17 08:37 | EKG REPORT ---
SEVERITY:- ABNORMAL ECG - SINUS RHYTHM LEFT ANTERIOR FASCICULAR BLOCK BIATRIAL ABNORMALITY : Confirmed by: Livan Carter MD 17-Jun-2020 08:36:38
== END 2020-06-16 23:43 | disposition home or self-care (01) ==
LOC: ER 18:22
DX: R00.2 Palpitations (principal); I44.4 Left anterior fascicular block; I10 Essential (primary) hypertension
CPT/HCPCS: 36415; 71046; 80053; 83735; 84484; 85025; 93005; 93010; 96372; 99285